=== PATIENT | female | born 1945 | race Caucasian/White ===

== ENCOUNTER 2017-10-26 11:03 | Emergency (ER) | payer OTHER ==
[~2017-10-26] VITALS: Ht 170.1 cm; Wt 63.5 kg
[~2017-10-26 11:03] MED LIST: ANTIVERT/2525 MG PO; FLAGYL500 MG PO; NO HOME MEDS; VIBRAMYCIN100 MG PO
[2017-10-26 12:07] LABS: BASO # 0.1 10*3/uL (0.0-0.1); BASO % 0.7 % (0.0-1.0); EOS # 0.2 10*3/uL (0.0-0.4); EOS % 1.7 % (1.0-4.0); HEMATOCRIT 42.3 % (37.0-47.0); HEMOGLOBIN 14.1 g/dl (12.0-16.0); LYMPH # 1.9 10*3/uL (1.3-4.4); LYMPH % 17.5 % (27.0-41.0); MEAN CELL VOLUME 85.6 fl (81.0-99.0); MEAN CORPUSCULAR HGB 28.5 pg (27.0-31.0); MEAN CORPUSCULAR HGB CONC 33.3 g/dl (33.0-37.0); MEAN PLATELET VOLUME 11.6 fl (9.6-12.3); MONO # 0.9 10*3/uL (0.1-1.0); MONO % 7.8 % (3.0-9.0); NEUT % 71.9 % (47.0-73.0); PLATELET COUNT AUTOMATED 274 10*3/uL (130-400); RED BLOOD COUNT 4.94 10*6/uL (4.10-5.10); RED CELL DISTRI WIDTH 13.1 % (0-14.5); WHITE BLOOD COUNT 11.1 10*3/uL (4.8-10.8)
[2017-10-26 12:16] LABS: ACT PARTIAL THROMBO TIME 24.5 SECONDS (20.8-31.5); INTERNATIONAL NORM RATIO 0.9 (2.0-3.5)
[2017-10-26 12:23] LABS: BUN 9 mg/dl (7-24); CHLORIDE 97 mmol/L (98-107); CREATININE 0.56 mg/dL (0.55-1.02); POTASSIUM 3.8 mmol/L (3.5-5.1); SODIUM 133 mmol/L (136-145)
== END 2017-10-26 13:41 | disposition home or self-care (01) ==
LOC: ED 11:03
PROVIDERS: Emergency Medicine
DX: S42.292A Other displaced fracture of upper end of left humerus, initial encounter for closed fracture (principal); S00.81XA Abrasion of other part of head, initial encounter; J44.9 Chronic obstructive pulmonary disease, unspecified; F17.200 Nicotine dependence, unspecified, uncomplicated; Z88.0 Allergy status to penicillin; W19.XXXA Unspecified fall, initial encounter; Y93.89 Activity, other specified; Y92.099 Unspecified place in other non-institutional residence as the place of occurrence of the external cause; Y99.9 Unspecified external cause status

== ENCOUNTER → 2017-10-31 | Outpatient (CLI) | payer OTHER | END | disposition home or self-care (01) | LOC: LAB 08:45 → ORTHO 08:45 | DX: E55.9 Vitamin D deficiency, unspecified (principal) ==

== ENCOUNTER 2017-11-10 19:20 | Emergency (ER) | payer OTHER ==
[~2017-11-10] VITALS: Ht 162.5 cm; Wt 55.3 kg
[2017-11-10 19:59] LABS: BASO # 0.1 10*3/uL (0.0-0.1); BASO % 0.8 % (0.0-1.0); EOS # 0.3 10*3/uL (0.0-0.4); EOS % 3.5 % (1.0-4.0); HEMATOCRIT 39.5 % (37.0-47.0); HEMOGLOBIN 12.8 g/dl (12.0-16.0); LYMPH # 1.9 10*3/uL (1.3-4.4); LYMPH % 24.6 % (27.0-41.0); MEAN CELL VOLUME 87.6 fl (81.0-99.0); MEAN CORPUSCULAR HGB 28.4 pg (27.0-31.0); MEAN CORPUSCULAR HGB CONC 32.4 g/dl (33.0-37.0); MEAN PLATELET VOLUME 11.2 fl (9.6-12.3); MONO # 0.9 10*3/uL (0.1-1.0); NEUT # 4.6 10*3/uL (2.3-7.9); NEUT % 59.7 % (47.0-73.0); PLATELET COUNT AUTOMATED 373 10*3/uL (130-400); RED BLOOD COUNT 4.51 10*6/uL (4.10-5.10); RED CELL DISTRI WIDTH 13.3 % (0-14.5); WHITE BLOOD COUNT 7.8 10*3/uL (4.8-10.8)
[2017-11-10 20:03] LABS: BILIRUBIN NEGATIVE (NEGATIVE); BLOOD NEGATIVE (NEGATIVE); CLARITY SL CLOUDY (CLEAR); COLOR YELLOW (YELLOW); GLUCOSE 3+ (NEGATIVE); KETONE NEGATIVE (NEGATIVE); LEUKO ESTERASE NEGATIVE (NEGATIVE); NITRITE NEGATIVE (NEGATIVE); SPECIFIC GRAVITY <= 1.005 (1.005-1.030); UROBILINOGEN 0.2 E.U./dl (0.2-1.0)
[2017-11-10 20:10] LABS: URINE AMPHETAMINES < 1000 (1000ng/ml); URINE BARBITURATES < 200 (200ng/ml); URINE BENZODIAZEPINES < 200 (200ng/ml); URINE CANNABINOIDS (THC) < 50 (50ng/ml); URINE COCAINE < 300 (300ng/ml); URINE METHADONE < 300 (300ng/ml); URINE OPIATES < 300 (300ng/ml)
[2017-11-10 20:14] LABS: BACTERIA 2+; URINE PHENCYCLIDINE < 25 (25ng/ml)
[2017-11-10 20:15] LABS: EPITHELIAL CELLS 21-30
[2017-11-10 20:16] LABS: MUCOUS TRACE
[2017-11-10 20:17] LABS: YEAST TRACE
[2017-11-10 20:18] LABS: ALBUMIN 2.7 gm/dl (3.1-4.5); ALKALINE PHOSPHATASE 83 U/L (45-117); BUN 11 mg/dl (7-24); CHLORIDE 97 mmol/L (98-107); CREATININE 0.88 mg/dL (0.55-1.02); POTASSIUM 3.7 mmol/L (3.5-5.1); SGOT/AST 13 IU/L (3-35); SGPT/ALT 13 U/L (12-78); SODIUM 132 mmol/L (136-145); TOTAL PROTEIN 7.3 gm/dL (6.4-8.2)
[2017-11-10 20:20] LABS: ACETAMINOPHEN (TYLENOL) < 2.0 ug/ml (10-30); ETHYL ALCOHOL < 3.0 mg/dl (<3); TROPONIN I < 0.015 ng/ml (<0.045)
[2017-11-10 20:24] LABS: THYROID STIM HORMONE (HS) 0.753 uIU/ml (0.358-4.75)
[2017-11-10] MEDS ORDERED: GLUCOPHAGE500 M1 PO (21:07)
[2017-11-10] MEDS ORDERED: NORCO 5-325 TA1 EACH PO (21:07)
== END 2017-11-10 21:15 | disposition home or self-care (01) ==
LOC: ED 19:20
PROVIDERS: Emergency Medicine Emergency Medical Services
DX: E11.9 Type 2 diabetes mellitus without complications (principal); R41.0 Disorientation, unspecified; Z88.0 Allergy status to penicillin

== ENCOUNTER → 2017-12-02 | Outpatient (CLI) | payer OTHER ==
[~2017-12-02] MED LIST changes: +GLUCOPHAGE500 M1 PO; +NORCO 5-325 TA1 EACH PO
== END | disposition home or self-care (01) ==
LOC: ORTHO 02:50
DX: Z47.89 Encounter for other orthopedic aftercare (principal); S42.302D Unspecified fracture of shaft of humerus, left arm, subsequent encounter for fracture with routine healing; X58.XXXD Exposure to other specified factors, subsequent encounter

== ENCOUNTER → 2018-01-02 | Outpatient (CLI) | payer OTHER | END | disposition home or self-care (01) | LOC: ORTHO 03:23 | DX: Z47.89 Encounter for other orthopedic aftercare (principal); S42.295D Other nondisplaced fracture of upper end of left humerus, subsequent encounter for fracture with routine healing; M85.812 Other specified disorders of bone density and structure, left shoulder; X58.XXXD Exposure to other specified factors, subsequent encounter ==

== ENCOUNTER 2018-09-12 15:04 | Emergency (ER) | payer OTHER ==
[~2018-09-12] VITALS: Ht 157.4 cm; Wt 72.6 kg
[2018-09-12] MEDS ORDERED: ULTRAM50 MG PO (18:43)
[2018-09-18] MEDS ORDERED: LIPITOR10 MG PO (07:32)
[2018-09-18] MEDS ORDERED: ZESTRIL10 MG PO (07:32)
[2018-09-18] MEDS ORDERED: FOSAMAX70 M1 PO (07:32)
[2018-09-18] MEDS ORDERED: VITAMIN D-32000 UNI1 PO (07:32)
[2018-09-18] MEDS ORDERED: METFORMIN ER500 MG PO (07:33)
[2018-09-20] MEDS ORDERED: LASIX40 MG PO (13:30)
[2018-09-20] MEDS ORDERED: MECLIZINE HCL25 M2 PO (13:30)
[2018-09-20] MEDS ORDERED: HYDROCODONE-AC1 EAC1 PO (13:30)
[2018-09-20] MEDS ORDERED: VITAMIN D50000 UNIT PO (13:34)
[2018-09-20] MEDS ORDERED: Humalog SQ (13:36)
[2018-09-20] MEDS ORDERED: COLACE100 MG PO (13:57)
== END 2018-09-12 19:36 | disposition home or self-care (01) ==
LOC: ED 15:04
DX: S42.461A Displaced fracture of medial condyle of right humerus, initial encounter for closed fracture (principal); G62.9 Polyneuropathy, unspecified; Z88.0 Allergy status to penicillin; W18.39XA Other fall on same level, initial encounter; Y93.89 Activity, other specified; Y92.89 Other specified places as the place of occurrence of the external cause; Y99.8 Other external cause status

== ENCOUNTER → 2018-10-06 | Outpatient (CLI) | payer OTHER ==
[~2018-10-06] MED LIST changes: +COLACE100 MG PO; +FOSAMAX70 M1 PO; +HYDROCODONE-AC1 EAC1 PO; +Humalog SQ; +LASIX40 MG PO; +LIPITOR10 MG PO; +MECLIZINE HCL25 M2 PO; +METFORMIN ER500 MG PO; +ULTRAM50 MG PO; +VITAMIN D-32000 UNI1 PO; +VITAMIN D50000 UNIT PO; +ZESTRIL10 MG PO
== END | disposition home or self-care (01) ==
LOC: ORTHO 02:33
DX: S42.444D Nondisplaced fracture (avulsion) of medial epicondyle of right humerus, subsequent encounter for fracture with routine healing (principal); X58.XXXD Exposure to other specified factors, subsequent encounter

== ENCOUNTER → 2018-10-20 | Outpatient (CLI) | payer OTHER | END | disposition home or self-care (01) | LOC: ORTHO 03:19 | DX: S42.401D Unspecified fracture of lower end of right humerus, subsequent encounter for fracture with routine healing (principal); X58.XXXD Exposure to other specified factors, subsequent encounter ==

== ENCOUNTER 2019-06-21 19:22 | Inpatient (IN) | payer OTHER ==
[~2019-06-21] VITALS: Ht 157.4 cm; Wt 81.3 kg
[2019-06-21 19:26] VITALS: BP 155/62
[2019-06-21 20:21] LABS: BASO % 0.2 % (0.0-1.0); EOS # 0.1 10*3/uL (0.0-0.4); EOS % 0.6 % (1.0-4.0); HEMATOCRIT 35.1 % (37.0-47.0); HEMOGLOBIN 11.2 g/dl (12.0-16.0); LYMPH # 0.8 10*3/uL (1.3-4.4); LYMPH % 5.9 % (27.0-41.0); MEAN CELL VOLUME 88.6 fl (81.0-99.0); MEAN CORPUSCULAR HGB 28.3 pg (27.0-31.0); MEAN CORPUSCULAR HGB CONC 31.9 g/dl (33.0-37.0); MEAN PLATELET VOLUME 12.1 fl (9.6-12.3); MONO % 7.4 % (3.0-9.0); NEUT # 11.9 10*3/uL (2.3-7.9); NEUT % 85.5 % (47.0-73.0); PLATELET COUNT AUTOMATED 268 10*3/uL (130-400); RED BLOOD COUNT 3.96 10*6/uL (4.10-5.10); RED CELL DISTRI WIDTH 14.4 % (0-14.5)
[2019-06-21 20:31] LABS: INTERNATIONAL NORM RATIO 1.1 (2.0-3.5)
[2019-06-21 20:42] LABS: BILIRUBIN 1+ (NEGATIVE); BLOOD 2+ (NEGATIVE); CLARITY CLEAR (CLEAR); COLOR YELLOW (YELLOW); GLUCOSE TRACE (NEGATIVE); KETONE TRACE (NEGATIVE); LEUKO ESTERASE NEGATIVE (NEGATIVE); NITRITE NEGATIVE (NEGATIVE); SPECIFIC GRAVITY 1.025 (1.005-1.030)
[2019-06-21 20:44] LABS: ALBUMIN 2.4 gm/dl (3.1-4.5); CREATININE 1.33 mg/dL (0.55-1.02); POTASSIUM 3.7 mmol/L (3.5-5.1); TOTAL PROTEIN 7.5 gm/dL (6.4-8.2)
[2019-06-21 20:53] LABS: TROPONIN I 0.141 ng/ml (<0.045)
[2019-06-21 20:57] LABS: EPITHELIAL CELLS 0-2
[2019-06-21 22:23] VITALS: BP 161/59
[2019-06-22 00:30] VITALS: BP 157/61
[2019-06-22] MEDS ORDERED: LASIX20 MG PO (00:44)
[2019-06-22 03:51] LABS: BASO % 0.2 % (0.0-1.0); EOS # 0.1 10*3/uL (0.0-0.4); EOS % 1.1 % (1.0-4.0); HEMATOCRIT 33.2 % (37.0-47.0); HEMOGLOBIN 10.7 g/dl (12.0-16.0); LYMPH # 1.1 10*3/uL (1.3-4.4); LYMPH % 8.6 % (27.0-41.0); MEAN CELL VOLUME 87.4 fl (81.0-99.0); MEAN CORPUSCULAR HGB 28.2 pg (27.0-31.0); MEAN CORPUSCULAR HGB CONC 32.2 g/dl (33.0-37.0); MEAN PLATELET VOLUME 11.5 fl (9.6-12.3); MONO % 8.5 % (3.0-9.0); NEUT # 9.9 10*3/uL (2.3-7.9); NEUT % 81.4 % (47.0-73.0); PLATELET COUNT AUTOMATED 269 10*3/uL (130-400); RED CELL DISTRI WIDTH 14.4 % (0-14.5); WHITE BLOOD COUNT 12.2 10*3/uL (4.8-10.8)
[2019-06-22 04:05] LABS: ALBUMIN 2.3 gm/dl (3.1-4.5); CREATININE 1.13 mg/dL (0.55-1.02); PHOSPHOROUS 2.7 mg/dL (2.5-4.9); POTASSIUM 3.6 mmol/L (3.5-5.1)
[2019-06-22 07:06] LABS: VITAMIN D, 25-HYDROXY 9.2 ng/mL (30-100)
[2019-06-22 08:00] VITALS: BP 148/52
[2019-06-22 12:00] VITALS: BP 135/107
[2019-06-22 16:00] VITALS: BP 171/64
[2019-06-22 20:00] VITALS: BP 139/73
[2019-06-23] VITALS: BP 155/63
[2019-06-23 03:59] VITALS: BP 156/88
[2019-06-23 10:53] LABS: BASO % 0.1 % (0.0-1.0); EOS % 0.1 % (1.0-4.0); HEMATOCRIT 32.7 % (37.0-47.0); HEMOGLOBIN 10.3 g/dl (12.0-16.0); LYMPH # 0.5 10*3/uL (1.3-4.4); LYMPH % 4.2 % (27.0-41.0); MEAN CELL VOLUME 90.1 fl (81.0-99.0); MEAN CORPUSCULAR HGB 28.4 pg (27.0-31.0); MEAN CORPUSCULAR HGB CONC 31.5 g/dl (33.0-37.0); MEAN PLATELET VOLUME 11.4 fl (9.6-12.3); MONO # 0.9 10*3/uL (0.1-1.0); MONO % 6.9 % (3.0-9.0); NEUT # 11.3 10*3/uL (2.3-7.9); NEUT % 88.2 % (47.0-73.0); PLATELET COUNT AUTOMATED 294 10*3/uL (130-400); RED BLOOD COUNT 3.63 10*6/uL (4.10-5.10); RED CELL DISTRI WIDTH 14.7 % (0-14.5); WHITE BLOOD COUNT 12.8 10*3/uL (4.8-10.8)
[2019-06-23 11:05] LABS: ALBUMIN 2.4 gm/dl (3.1-4.5); CREATININE 1.4 mg/dL (0.55-1.02); TOTAL PROTEIN 7.3 gm/dL (6.4-8.2)
[2019-06-23 12:00] VITALS: BP 136/68
[2019-06-23 16:00] VITALS: BP 152/69
[2019-06-23 20:00] VITALS: BP 143/83
[2019-06-24] VITALS: BP 149/60
[2019-06-24 07:28] LABS: BUN 26 mg/dl (7-24); CHLORIDE 105 mmol/L (98-107); CREATININE 1.03 mg/dL (0.55-1.02); POTASSIUM 3.5 mmol/L (3.5-5.1); SODIUM 136 mmol/L (136-145)
[2019-06-24 08:00] VITALS: BP 136/64
[2019-06-24 08:30] LABS: BASO % 0.1 % (0.0-1.0); EOS % 0.1 % (1.0-4.0); HEMOGLOBIN 9.8 g/dl (12.0-16.0); LYMPH % 7.4 % (27.0-41.0); MEAN CELL VOLUME 87.3 fl (81.0-99.0); MEAN CORPUSCULAR HGB 27.6 pg (27.0-31.0); MEAN CORPUSCULAR HGB CONC 31.6 g/dl (33.0-37.0); MEAN PLATELET VOLUME 11.9 fl (9.6-12.3); NEUT # 11.7 10*3/uL (2.3-7.9); NUCLEATED RED BLOOD CELL 0.2 % (0.0-0.0); PLATELET COUNT AUTOMATED 311 10*3/uL (130-400); RED BLOOD COUNT 3.55 10*6/uL (4.10-5.10); RED CELL DISTRI WIDTH 14.6 % (0-14.5); WHITE BLOOD COUNT 13.8 10*3/uL (4.8-10.8)
[2019-06-24 12:00] VITALS: BP 144/71; BP 159/73
[2019-06-24 16:00] VITALS: BP 164/82
[2019-06-24 20:00] VITALS: BP 168/78
[2019-06-25] VITALS: BP 152/57
[2019-06-25 07:05] LABS: BASO % 0.1 % (0.0-1.0); EOS % 0.3 % (1.0-4.0); HEMATOCRIT 32.5 % (37.0-47.0); HEMOGLOBIN 10.2 g/dl (12.0-16.0); LYMPH # 1.7 10*3/uL (1.3-4.4); LYMPH % 13.6 % (27.0-41.0); MEAN CELL VOLUME 87.8 fl (81.0-99.0); MEAN CORPUSCULAR HGB 27.6 pg (27.0-31.0); MEAN CORPUSCULAR HGB CONC 31.4 g/dl (33.0-37.0); MEAN PLATELET VOLUME 11.7 fl (9.6-12.3); MONO % 7.8 % (3.0-9.0); NEUT # 9.6 10*3/uL (2.3-7.9); NEUT % 77.5 % (47.0-73.0); PLATELET COUNT AUTOMATED 338 10*3/uL (130-400); RED CELL DISTRI WIDTH 14.9 % (0-14.5); WHITE BLOOD COUNT 12.4 10*3/uL (4.8-10.8)
[2019-06-25 07:14] LABS: BUN 23 mg/dl (7-24); CHLORIDE 104 mmol/L (98-107); CREATININE 1.06 mg/dL (0.55-1.02); POTASSIUM 3.8 mmol/L (3.5-5.1); SODIUM 135 mmol/L (136-145)
[2019-06-25 08:59] VITALS: BP 160/82
[2019-06-25] MEDS ORDERED: ZESTRIL10 MG PO (10:01)
[2019-06-25] MEDS ORDERED: FLAGYL500 MG PO (10:01)
[2019-06-25] MEDS ORDERED: PREDNISONE10 MG PO (10:01)
[2019-06-25] MEDS ORDERED: VITAMIN D32000 UNI1 PO (10:01)
[2019-06-25] MEDS ORDERED: CIPRO500 MG PO (10:01)
[2019-06-25 12:00] VITALS: BP 165/74
== END 2019-06-25 14:31 | disposition home health service (06) | DRG 871 ==
LOC: ED 19:22 → 4E 06-22 00:01 → EDHOLD 06-22 00:01 → 4E 06-22 00:02
PROVIDERS: Family Medicine; Physician Assistant; Student in an Organized Health Care Education/Training Program; ADMIT Internal Medicine
DX: A41.9 Sepsis, unspecified organism (principal); N17.0 Acute kidney failure with tubular necrosis; E43 Unspecified severe protein-calorie malnutrition; J96.01 Acute respiratory failure with hypoxia; J18.9 Pneumonia, unspecified organism; K57.20 Diverticulitis of large intestine with perforation and abscess without bleeding; E87.1 Hypo-osmolality and hyponatremia; J44.1 Chronic obstructive pulmonary disease with (acute) exacerbation; J44.0 Chronic obstructive pulmonary disease with (acute) lower respiratory infection; I24.8 Other forms of acute ischemic heart disease; J20.9 Acute bronchitis, unspecified; B35.1 Tinea unguium; K74.60 Unspecified cirrhosis of liver; R65.20 Severe sepsis without septic shock; D72.810 Lymphocytopenia; E11.65 Type 2 diabetes mellitus with hyperglycemia; R80.9 Proteinuria, unspecified; D64.9 Anemia, unspecified; I10 Essential (primary) hypertension; E78.5 Hyperlipidemia, unspecified; E11.42 Type 2 diabetes mellitus with diabetic polyneuropathy; F17.210 Nicotine dependence, cigarettes, uncomplicated; Z68.32 Body mass index [BMI] 32.0-32.9, adult; Z71.6 Tobacco abuse counseling; Z88.0 Allergy status to penicillin; Z82.3 Family history of stroke; Z83.3 Family history of diabetes mellitus; Z82.49 Family history of ischemic heart disease and other diseases of the circulatory system; Z79.899 Other long term (current) drug therapy

== ENCOUNTER 2019-08-06 13:23 | Inpatient (IN) | payer OTHER ==
[~2019-08-06] VITALS: Ht 160 cm; Wt 91.8 kg
[~2019-08-06 13:23] MED LIST changes: +CIPRO500 MG PO; +LASIX20 MG PO; +PREDNISONE10 MG PO; +VITAMIN D32000 UNI1 PO
[2019-08-06 13:34] VITALS: BP 179/84
[2019-08-06 14:02] LABS: BASO # 0.1 10*3/uL (0.0-0.1); BASO % 1.4 % (0.0-1.0); EOS # 0.1 10*3/uL (0.0-0.4); HEMATOCRIT 41.8 % (37.0-47.0); HEMOGLOBIN 12.6 g/dl (12.0-16.0); LYMPH # 1.9 10*3/uL (1.3-4.4); LYMPH % 26.9 % (27.0-41.0); MEAN CELL VOLUME 90.9 fl (81.0-99.0); MEAN CORPUSCULAR HGB 27.4 pg (27.0-31.0); MEAN CORPUSCULAR HGB CONC 30.1 g/dl (33.0-37.0); MEAN PLATELET VOLUME 11.4 fl (9.6-12.3); MONO # 0.8 10*3/uL (0.1-1.0); MONO % 10.9 % (3.0-9.0); NEUT # 4.1 10*3/uL (2.3-7.9); NEUT % 58.8 % (47.0-73.0); PLATELET COUNT AUTOMATED 294 10*3/uL (130-400); RED CELL DISTRI WIDTH 17.3 % (0-14.5)
[2019-08-06 14:16] LABS: ACT PARTIAL THROMBO TIME 25.9 SECONDS (20.0-32.1)
[2019-08-06 14:17] LABS: ALKALINE PHOSPHATASE 93 U/L (45-117); BUN 9 mg/dl (7-24); CHLORIDE 102 mmol/L (98-107); CREATININE 1.04 mg/dL (0.55-1.02); LIPASE 95 U/L (73-393); POTASSIUM 3.4 mmol/L (3.5-5.1); SGOT/AST 15 IU/L (3-35); SGPT/ALT 13 U/L (12-78); SODIUM 137 mmol/L (136-145); TOTAL PROTEIN 7.3 gm/dL (6.4-8.2)
[2019-08-06 14:19] LABS: TROPONIN I 0.187 ng/ml (<0.045)
--- NOTE | 2019-08-06 14:50 | NUR ---
A 74, admitted to , under the services of Dr. ESTUARDO PARISH,ANAND Solorio with a diagnosis of CHF. Chief complaint is SHORTNESS OF BREATH, BLE EDEMA. Patient arrived via stretcher from ER. Monitor applied. Initial assessment completed. Vital signs taken and recorded. DR. ESTUARDO PARISH,ANAND Solorio notified of admission to the unit. Orders received. See assessment for past medical history, medications and allergies. Patient and/or family oriented to unit. [address] visitation policy reviewed. Clothing/patient valuable form completed. KATJA RIVAS
[2019-08-06 16:00] VITALS: BP 154/84
[2019-08-06 16:25] VITALS: BP 160/73
--- NOTE | 2019-08-06 17:23 | NUR ---
DR LOREDO CONSULT CALLED TO ANSWERING SERVICE
--- NOTE | 2019-08-06 19:00 | NUR ---
ASSUMED CARE FOR THIS PT AT THIS TIME. NO C/O VOICED AT PRESENT TIME. CALL LIGHT IN REACH.
[2019-08-06 20:00] VITALS: BP 156/69
--- NOTE | 2019-08-06 22:00 | NUR ---
PT C/O PAIN 01/27 IN LOWER BACK. ACETMMINOPHEN GIVEN.
--- NOTE | 2019-08-06 22:53 | NUR ---
PAIN 0/10. PT RESTING QUIETLY
[2019-08-07] VITALS: BP 119/45
--- NOTE | 2019-08-07 01:29 | NUR ---
24 HR chart check completed.
[2019-08-07 06:29] LABS: BASO # 0.1 10*3/uL (0.0-0.1); EOS % 0.6 % (1.0-4.0); HEMATOCRIT 39.5 % (37.0-47.0); HEMOGLOBIN 11.6 g/dl (12.0-16.0); LYMPH # 1.6 10*3/uL (1.3-4.4); LYMPH % 31.9 % (27.0-41.0); MEAN CELL VOLUME 90.8 fl (81.0-99.0); MEAN CORPUSCULAR HGB 26.7 pg (27.0-31.0); MEAN CORPUSCULAR HGB CONC 29.4 g/dl (33.0-37.0); MEAN PLATELET VOLUME 11.2 fl (9.6-12.3); MONO # 0.8 10*3/uL (0.1-1.0); MONO % 14.9 % (3.0-9.0); NEUT # 2.6 10*3/uL (2.3-7.9); NEUT % 51.4 % (47.0-73.0); PLATELET COUNT AUTOMATED 264 10*3/uL (130-400); RED BLOOD COUNT 4.35 10*6/uL (4.10-5.10); RED CELL DISTRI WIDTH 17.2 % (0-14.5); WHITE BLOOD COUNT 5.1 10*3/uL (4.8-10.8)
[2019-08-07 06:46] LABS: BUN 7 mg/dl (7-24); CHLORIDE 100 mmol/L (98-107); CREATININE 1.02 mg/dL (0.55-1.02); POTASSIUM 3.5 mmol/L (3.5-5.1); SODIUM 139 mmol/L (136-145)
[2019-08-07 08:00] VITALS: BP 120/50
--- NOTE | 2019-08-07 08:04 | NUR ---
PHYSICAL THERAPY Screen and eval received will follow thank you Saba Alexander PT
--- NOTE | 2019-08-07 10:30 | NUR ---
Automobile Body Worker in to see patient. She is currently getting bathes in the bathroom with the patient attendant. Will follow up at a later time.
--- NOTE | 2019-08-07 11:38 | NUR ---
Nutritional Support Services Note: Discussed w/ pt NCS diet per her request. Diet sheet given. All questions were answered. Pt has a good understanding of diet and complies at home. Pt lives with supportive person at home who helps prepare meals. Encouraged her to call with any questions or concerns. Will follow if needed. Compliance to diet will be good. LESLIE Caraballo nurse intern
[2019-08-07 12:00] VITALS: BP 127/54
--- NOTE | 2019-08-07 15:15 | NUR ---
Assistant Tennis Professional in to talk to patient. Patient states lives at home with her COMPUTER DRAFTER, Minh Thrasher and Minh's daughter. There are 24 steps in the home. There are 2 wheelchair ramps, one in the front and one in the back. Physician: Dr. Get De La Fuente Pharmacy: [facility] Home health services: [facility] therapy and would like to have a nurse again Patient's level of ADLs: MINIMAL ASSIST Patient has working utilities: yes DME: cane, walker Follow-up physician's appointment after d/c: she prefers to make her own follow up appt after discharge Does patient want to access PORTAL?: no Discharge plan discussed with patient. She lives at home with her COMPUTER DRAFTER caregiver. She needs minimal assistance with her ADLs and ambulates with either a walker or a cane. Discussed short term SNF and she refuses. Discussed home health care services and she currently has [facility] therapy but would like to have the nurse come back also. When medically stable she will be discharged to home with [facility] services, She states either her goddaughter will provide transportation or she will have to take a cab. BRITTANEY BEY
[2019-08-07 16:00] VITALS: BP 148/74
--- NOTE | 2019-08-07 18:48 | NUR ---
LAB CALLED CRITICAL TROPONIN. DR CARDONA CALLED AND NOTIFIED OF TROPONIN LEVELS AND ECHO FROM TODAY. NO NEW ORDERS
--- NOTE | 2019-08-07 19:00 | NUR ---
ASSUMED CARE FOR THIS PT AT THIS TIME. PT RESTING QUIETLY IN BED. NO S/S OF DISTRESS NOTED. CALL LIGHT IN REACH.
[2019-08-07 20:00] VITALS: BP 106/53
--- NOTE | 2019-08-07 20:21 | NUR ---
DR. TAYLOR NOTIFIED OF PT'S C/O NAUSEA. T.O. RCVD FOR ZOFRAN 8MG IVP Q6 HOURS PRN N/V.
--- NOTE | 2019-08-07 23:00 | NUR ---
PT DENIES ANY FURTHER C/O NAUSEA. PRN ZOFRAN EFFECTIVE.
[2019-08-08] VITALS: BP 145/63
--- NOTE | 2019-08-08 01:03 | NUR ---
PT STATES SHE CAN'T CATCH HER BREATH. NO S/S OF RESP DISTRESS NOTED. SAT 98% RA. PT ENCOURAGED TO SIT UP IN BED VS LYING FLAT WHICH CAUSES HER SOB AT HOME. O2 APPLIED VIA NC AT 2LPM FOR COMFORT. CALL LIGHT IN REACH.
--- NOTE | 2019-08-08 02:00 | NUR ---
PT AWAKE IN BED ON HER CELL PHONE. NO S/S OF RESP DISTRESS NOTED OR REPORTED. CALL LIGHT IN REACH.
[2019-08-08 07:27] LABS: CREATININE 1.22 mg/dL (0.55-1.02); POTASSIUM 3.6 mmol/L (3.5-5.1)
--- NOTE | 2019-08-08 09:00 | NUR ---
Body Press Operator in to see patient. No new needs or request at this time. When medically stable she will be discharged to home with [facility] services.
[2019-08-08 12:00] VITALS: BP 152/59
[2019-08-08 16:00] VITALS: BP 155/77
[2019-08-08 20:00] VITALS: BP 110/47
[2019-08-09] VITALS: BP 138/60
[2019-08-09 06:11] LABS: ALBUMIN 2.8 gm/dl (3.1-4.5); CREATININE 1.27 mg/dL (0.55-1.02); POTASSIUM 3.5 mmol/L (3.5-5.1); TOTAL PROTEIN 6.6 gm/dL (6.4-8.2)
--- NOTE | 2019-08-09 08:00 | NUR ---
IN TO ROOM. PATIENT NEEDED ASSISTANCE TO AMBULATE TO RESTROOM. AMBULATES WITH 1 ASSIST. UNSTEADY AT TIMES. PT AWAKE, ALERT AND ORIENTED. VOICED CONCERNS FOR STRESS TEST. EDUCATION PROVIDED. SKIN SHOWS EVIDENCE OF SCRATCHING. PT STATES SHE IS VERY ITCHY. LOTION PROVIDED. BED IN LOWEST LOCKED POSITION AND CALL LIGHT WITHIN REACH. WILL CONTINUE TO MONITOR.
--- NOTE | 2019-08-09 10:10 | NUR ---
INFORMED CONSENT OBTAINED FOR A LEXISCAN STESS TEST WITH DR. MARTE. RESTING EKG NSR WITH A HT RT OF 83, AMD A BP OF 152/76. BREATH SOUNDS DIMINISHED WITH A SPO2 OF 97% VIA RA. COMPLETED ONE MINUTE OF A LEXISCAN PROTOCOL RECEIVING LEXISCAN 0.4 MG OVER 10 SECONDS. NO COMPLAINTS VOICED. HAD A PEAK HT RT OF 84, WITH A BP OF 158/82. LAST RECOVERY HT RT OF 85, WITH A BP OF 156/80. AWAITING NUCLEAR IMAGING IN STABLE CONDITION.
--- NOTE | 2019-08-09 10:30 | NUR ---
Configuration Management Manager in to see patient. No new needs or request at this time. When medically stable she will be discharged to home with [facility] services.
--- NOTE | 2019-08-09 10:40 | NUR ---
PHYSICAL THERAPY Attempted to see pt this AM for assessemnt pt out of room for stress test per nsg request will follow in the PM after lunch per nurse Lyndsey. Saba Alexander PT
--- NOTE | 2019-08-09 11:45 | NUR ---
Faxed new home health order to [facility]
[2019-08-09 12:00] VITALS: BP 126/62
--- NOTE | 2019-08-09 12:00 | NUR ---
PT BACK TO FLOOR FROM STRESS TEST. PT STATED SHE WAS HUNGRY. DR MARTE NOTIFIED AND ORDERS OBTAINED TO CONTINUE DIET. PT COMPLAINS OF BACK PAIN AND PRN TYLENOL ADMINISTERED. WILL CONTINUE TO MONITOR.
--- NOTE | 2019-08-09 14:44 | NUR ---
DR. HYDE CALLED ABOUT PT. STATES THAT SHE IS OK TO GO FROM CARDIOLOGY'S STAND POINT. DR MARTE NOTIFIED.
--- NOTE | 2019-08-09 14:55 | NUR ---
PHYSICAL THERAPY Huial completed pt moderate level of complexity [id number] recomend home w PT to work on transfers, abm, balance/strengthing. Saba Alexander PT
[2019-08-09 16:00] VITALS: BP 123/50
[2019-08-09 20:00] VITALS: BP 146/61
[2019-08-10] VITALS: BP 153/59
[2019-08-10 06:37] LABS: BASO # 0.1 10*3/uL (0.0-0.1); BASO % 0.9 % (0.0-1.0); EOS # 0.1 10*3/uL (0.0-0.4); HEMATOCRIT 37.6 % (37.0-47.0); HEMOGLOBIN 10.8 g/dl (12.0-16.0); MEAN CELL VOLUME 92.6 fl (81.0-99.0); MEAN CORPUSCULAR HGB 26.6 pg (27.0-31.0); MEAN CORPUSCULAR HGB CONC 28.7 g/dl (33.0-37.0); MEAN PLATELET VOLUME 11.3 fl (9.6-12.3); MONO # 0.7 10*3/uL (0.1-1.0); MONO % 10.9 % (3.0-9.0); NEUT # 4.5 10*3/uL (2.3-7.9); PLATELET COUNT AUTOMATED 223 10*3/uL (130-400); RED BLOOD COUNT 4.06 10*6/uL (4.10-5.10); RED CELL DISTRI WIDTH 17.1 % (0-14.5); WHITE BLOOD COUNT 6.4 10*3/uL (4.8-10.8)
[2019-08-10 08:00] VITALS: BP 142/72
--- NOTE | 2019-08-10 08:30 | NUR ---
PHYSICAL THERAPY Attempt to see pt this A.M. and pt stated " lets hold off till later and I will try if the pain is better." Kaitlin Walters NAPPING MACHINE OPERATOR
--- NOTE | 2019-08-10 11:00 | NUR ---
PHYSICAL THERAPY Attempted to see pt for 2nd time and pt stated " I am going home and don't want to worry about any therapy today." Kaitlin Walters FABRICATION AND ASSEMBLY SUPERVISOR
[2019-08-10] MEDS ORDERED: ISORDIL10 M1 PO (11:08)
[2019-08-10] MEDS ORDERED: ATORVASTATIN CA40 M1 PO (11:08)
[2019-08-10] MEDS ORDERED: APRESOLINE10 MG PO (11:08)
[2019-08-10] MEDS ORDERED: ASPIRIN CHEWABL81 M1 PO (11:08)
[2019-08-10] MEDS ORDERED: METOPROLOL SUCC25 M2 PO (11:08)
[2019-08-10] MEDS ORDERED: BUMETANIDE0.5 MG PO (11:09)
--- NOTE | 2019-08-10 13:40 | NUR ---
Discharge instructions reviewed with patient/family. Patient receptive and verbalizes understanding. Follow-up care arranged. Written instructions given to patient/family. MIRIAM FREITAS
--- NOTE | 2019-08-10 16:14 | NUR ---
Faxed discharge summary and disposition to [facility]
== END 2019-08-10 13:40 | disposition home health service (06) | DRG 292 ==
LOC: ED 13:23 → 4E 15:36 → EDHOLD 15:36 → 4E 16:22
PROVIDERS: Emergency Medicine; Student in an Organized Health Care Education/Training Program; ADMIT Internal Medicine
PROC: 3E073KZ Introduction of Other Diagnostic Substance into Coronary Artery, Percutaneous Approach (ICD-10-PCS; principal; 2019-08-09)
PROC: 4A02XM4 Measurement of Cardiac Total Activity, External Approach (ICD-10-PCS; principal; 2019-08-09)
DX: I11.0 Hypertensive heart disease with heart failure (principal); E44.0 Moderate protein-calorie malnutrition; I27.20 Pulmonary hypertension, unspecified; R62.7 Adult failure to thrive; I50.43 Acute on chronic combined systolic (congestive) and diastolic (congestive) heart failure; I42.9 Cardiomyopathy, unspecified; E11.42 Type 2 diabetes mellitus with diabetic polyneuropathy; K74.60 Unspecified cirrhosis of liver; E87.6 Hypokalemia; I35.0 Nonrheumatic aortic (valve) stenosis; E78.2 Mixed hyperlipidemia; Z53.29 Procedure and treatment not carried out because of patient's decision for other reasons; T50.2X5A Adverse effect of carbonic-anhydrase inhibitors, benzothiadiazides and other diuretics, initial encounter; D64.9 Anemia, unspecified; K57.90 Diverticulosis of intestine, part unspecified, without perforation or abscess without bleeding; F17.210 Nicotine dependence, cigarettes, uncomplicated; J44.9 Chronic obstructive pulmonary disease, unspecified; Z88.0 Allergy status to penicillin; Z82.3 Family history of stroke; Z82.49 Family history of ischemic heart disease and other diseases of the circulatory system; Z83.3 Family history of diabetes mellitus; Z68.37 Body mass index [BMI] 37.0-37.9, adult; Y92.89 Other specified places as the place of occurrence of the external cause

== ENCOUNTER 2019-08-13 02:24 | Inpatient (IN) | payer OTHER ==
--- NOTE | 2019-08-10 07:44 | NUR ---
PHYSICAL THERAPY CO-SIGN I approve of the Physical Therapy notes written above. Saba Alexander PT
[~2019-08-13] VITALS: Ht 160 cm; Wt 98.9 kg
[~2019-08-13 02:24] MED LIST changes: +APRESOLINE10 MG PO; +ASPIRIN CHEWABL81 M1 PO; +ATORVASTATIN CA40 M1 PO; +BUMETANIDE0.5 MG PO; +ISORDIL10 M1 PO; +METOPROLOL SUCC25 M2 PO
[2019-08-13 02:28] VITALS: BP 165/61
[2019-08-13 03:02] LABS: BASO # 0.1 10*3/uL (0.0-0.1); BASO % 1.3 % (0.0-1.0); EOS # 0.2 10*3/uL (0.0-0.4); EOS % 2.3 % (1.0-4.0); HEMATOCRIT 37.8 % (37.0-47.0); HEMOGLOBIN 11.2 g/dl (12.0-16.0); LYMPH # 1.8 10*3/uL (1.3-4.4); LYMPH % 26.4 % (27.0-41.0); MEAN CELL VOLUME 91.5 fl (81.0-99.0); MEAN CORPUSCULAR HGB 27.1 pg (27.0-31.0); MEAN CORPUSCULAR HGB CONC 29.6 g/dl (33.0-37.0); MEAN PLATELET VOLUME 11.2 fl (9.6-12.3); MONO # 0.9 10*3/uL (0.1-1.0); MONO % 12.7 % (3.0-9.0); NEUT % 57.2 % (47.0-73.0); PLATELET COUNT AUTOMATED 213 10*3/uL (130-400); RED BLOOD COUNT 4.13 10*6/uL (4.10-5.10); RED CELL DISTRI WIDTH 17.1 % (0-14.5); WHITE BLOOD COUNT 6.9 10*3/uL (4.8-10.8)
[2019-08-13 03:13] LABS: ACT PARTIAL THROMBO TIME 27.6 SECONDS (20.0-32.1)
[2019-08-13 03:19] LABS: CREATININE 1.12 mg/dL (0.55-1.02); POTASSIUM 3.7 mmol/L (3.5-5.1); TOTAL PROTEIN 7.1 gm/dL (6.4-8.2)
[2019-08-13 03:23] LABS: TROPONIN I 0.148 ng/ml (<0.045)
[2019-08-13 06:04] VITALS: BP 164/60
--- NOTE | 2019-08-13 06:25 | NUR ---
A 74, admitted to , under the services of Dr. ESTUARDO PARISH,ANAND Solorio with a diagnosis of COPD. Chief complaint is LEG SWELLING. Patient arrived via STRETCHER from ER. Monitor applied. Initial assessment completed. Vital signs taken and recorded. DR. ESTUARDO PARISH,ANAND Solorio notified of admission to the unit. Orders received. See assessment for past medical history, medications and allergies. Patient and/or family oriented to unit. [facility]. Clothing/patient valuable form completed. ANAYA QUINTANA
[2019-08-13] MEDS ORDERED: HYDRALAZINE10 MG PO (06:29)
[2019-08-13] MEDS ORDERED: ISOSORBIDE DINI10 M1 PO (06:31)
--- NOTE | 2019-08-13 06:38 | NUR ---
NOTIFIED OF PTS CONDITION AND WENT OVER PTS MEDICATIONS WITH HIM. NEW ORDERS RECEIVED.
--- NOTE | 2019-08-13 06:40 | NUR ---
ALSO NOTIFIED OF BP OF 164/60.
--- NOTE | 2019-08-13 07:19 | NUR ---
NOTIFIED OF CRITICAL TROPONINS AND PRO-BNP. NEW ORDERS RECEIVED.
--- NOTE | 2019-08-13 07:25 | NUR ---
ANSWERING SERVICE NOTIFIED OF NEW CONSULT.
--- NOTE | 2019-08-13 07:34 | NUR ---
AWARE OF NEW CONSULT. DISCUSSED PTS CONDITION WITH HIM AND REVIEWED LABS WITH HIM. HE STATES "WE WILL BE AROUND TO SEE HER IN A LITTLE BIT."
[2019-08-13 08:00] VITALS: BP 160/50
--- NOTE | 2019-08-13 08:16 | NUR ---
PHYSICAL THERAPY Screen received pt has already been evaluated and is on caseload thank you Saba Alexander PT
--- NOTE | 2019-08-13 09:00 | NUR ---
Manager Plan in to talk to patient. states lives at home with her LIME KILN TENDER, Minh Thrasher and Minh's daughter. There are 24 steps in the home. There are 2 wheelchair ramps, one in the front and one in the back. Physician: Dr. Get De La Fuente Pharmacy: [facility] Home health services: currently has [facility] and would like to resume those services upon discharge Patient's level of ADLs: MINIMAL ASSIST Patient has working utilities: yes DME: cane, walker Follow-up physician's appointment after d/c: she prefers to make her own follow up appt after discharge Does patient want to access PORTAL?: no Discharge plan discussed with patient. She lives at home with her LIME KILN TENDER caregiver. She needs minimal assistance with her ADLs and ambulates with either a walker or a cane. Discussed short term SNF and she refuses. Discussed home health care services and she currently has [facility] and would like to resume their services upon discharge. When medically stable she will be discharged to home with [facility]. She states either her goddaughter will provide transportation or she will have to take a cab. BRITTANEY BEY
--- NOTE | 2019-08-13 10:43 | NUR ---
PATIENT REFUSES SKIN ASSESSMENT, BY KRISTEN GOMEZ MYSELF. CALAZIME IS ORDERRED BUT PATIENT REFUSES
[2019-08-13 12:00] VITALS: BP 150/64
--- NOTE | 2019-08-13 13:36 | NUR ---
Nursing screen and OT orders received. Will follow up with patient. Thank you. Destiny Rivera, OTR/L
[2019-08-13 15:14] LABS: ABG BASE EXCESS 4.1 mmol/L (-2.0-2.0); ARTERIAL BLOOD GAS PH 7.466 (7.35-7.45)
[2019-08-13 16:00] VITALS: BP 148/90
[2019-08-13 20:00] VITALS: BP 146/68
--- NOTE | 2019-08-13 20:40 | NUR ---
MADE DR. SÁNCHEZ AWARE OF ABGS. NO NEW ORDERS RECEIVED. WILL CONTINUE TO MONITOR.
--- NOTE | 2019-08-13 21:43 | NUR ---
PATIENT REQUESTING TYLENOL FOR BLE PAIN. MEDICATED WITH TYLENOL AT THIS TIME. WILL CONTINUE TO MONITOR.
--- NOTE | 2019-08-13 23:15 | NUR ---
PATIENT STATES THE TYLENOL WAS NOT EFFECTIVE. THIS NURSE OFFERED TO CALL THE DOCTOR FOR SOMETHING ELSE. PATIENT REFUSING. STATES SHE DOESNT WANT ANYTHING THAT WILL CAUSE HER TO BECOME ADDICTED.
[2019-08-14] VITALS: BP 155/58
--- NOTE | 2019-08-14 05:37 | NUR ---
PATIENT C/O BLE PAIN. GIVEN TYLENOL AT THIS TIME. WILL CONTINUE TO MONITOR.
[2019-08-14 07:38] LABS: CREATININE 1.14 mg/dL (0.55-1.02); POTASSIUM 3.5 mmol/L (3.5-5.1)
[2019-08-14 08:00] VITALS: BP 108/42
--- NOTE | 2019-08-14 11:29 | NUR ---
Hops Farmworker in to see patient. Discussed short term SNF and she is agreeable. When provided with a list of facilities she chose [facility]. equipment planner notified.
--- NOTE | 2019-08-14 11:30 | NUR ---
Occupational therapy orders received and OT evaluation completed in full on floor four. Patient precautions include fall risk, CUSTOMER SERVICE ENGINEER, weakness, and B/L LE edema/pain. Per OT eval, OT recommends SNF. If refused, home with HH SN, OT, and PT with continued 24/7 supervision assist. Patient would benefit from continued OT treatment to maximize safety and independence with ADLs, transfers, and mobility[place], [id number]. Thank you for the referral. Destiny Rivera, OTR/L
[2019-08-14 12:00] VITALS: BP 143/67
--- NOTE | 2019-08-14 12:48 | NUR ---
[facility] Contacted facililty and faxed initital referral. Waiting on PT/OT evals. Requires precert.
--- NOTE | 2019-08-14 14:52 | NUR ---
PT and OT evals faxed to [facility]. still waiting for acceptance.
[2019-08-14 16:00] VITALS: BP 123/53
[2019-08-14 20:00] VITALS: BP 130/43
--- NOTE | 2019-08-14 21:14 | NUR ---
PATIENT RESTING IN BED, C/O LEG PAIN. GIVEN TYLENOL. RESPIRATIONS EASY,NON LABORED. VOICES NO OTHER COMPLAINTS. BED IN LOWEST POSITION,CALL LIGHT WITHIN REACH. WILL CONTINUE TO MONITOR.
[2019-08-15] VITALS: BP 113/50
--- NOTE | 2019-08-15 | NUR ---
PT AWAKE, A&O, ASSISTED UP TO BSC AND THEN BACK TO BED. SOB WITH EXERTION, NO ACUTE DISTRESS NOTED. NO COMPLAINTS VOICED. ALESSANDRA PATENT.
--- NOTE | 2019-08-15 07:05 | NUR ---
[facility] stating they have reviewed the referral and they would like to review more information once patient is more stable for discharge. Patient requires precert.
--- NOTE | 2019-08-15 07:45 | NUR ---
pt awake alert and oriented x3, receiving breathing treatment at this time. no signs of distress noted, exp wheeze t/o and crackles noted to bases of b/l lungs, denies any chest pain of sob, hr72 per cm, edema noted from toes to hips 3+, denies n/v/d/c, complains about fluid restriction. will cont to monitor. call light in reach.
[2019-08-15 07:49] VITALS: BP 140/60
--- NOTE | 2019-08-15 08:01 | NUR ---
PT WAS RECEIVING BREATHING TREATMENT UPON ENTERING. PT HAS ORDERED BREAKFAST AND WAIING FOR IT TO ARRIVE. ANMOL BROUSSARD [facility]
--- NOTE | 2019-08-15 09:12 | NUR ---
OT NOTE PATIENT SEEN 1:1 OT THIS DATE. PATIENT IDENTIFIED BY NAME AND DATE OF . COMPLETED 26 MINUTES OT THIS DATE. COMPLETED BED MOBILTY SUPINE TO SIT EOB CGA INCREASE TIME USE OF RAIL. COMPLETED SIT TO STAND FROM BED CGA. COMPLETED UB DRESSING/BATHING MIN A AND LB DRESSING MOD A WITH PATIENT EDUCATED BENEFITS USE AE INCREASE INDEPENDENCE REACHING FEET. PATIENT DECLINED BATH LB REPORTING THAT HER LB WAS ALREADY CLEAN. PATIENT COMPLETED SIT TO STAND FROM BED CGA AND MIN A USE FWW AMBULATING SHORT DISTANCE USE FWW TO RECLINER WITH INCREASE TIME AND MIN VERBAL CUES POSTURE AND PROPER GAIT. PATIENT REPORTS 7/10 PAIN BILETERAL HIP WITH AMBULATION. PATIENT SEATED IN RECLINER WITH PATIENT IN CARE OF NURSING STUDENTS. CONTINUE TOWARDS PLAN OF CARE. SHAKEEL MARLOW/Jordan
[2019-08-15 09:26] LABS: CREATININE 1.3 mg/dL (0.55-1.02); POTASSIUM 4.2 mmol/L (3.5-5.1)
--- NOTE | 2019-08-15 10:11 | NUR ---
PT IS CURRENTLY IN BED, PT IS PLEASANT AND COOPERATIVE. ANMOL BROUSSARD [facility]
--- NOTE | 2019-08-15 10:35 | NUR ---
PHYSICAL THERAPY Patient seen this am 1;1 for therapy visit and was supine in bed upon therapist arrival. Patient identified by name / and presented with continuous O2-2L via NC. Student nurse was in room during EVENT MANAGEMENT CONSULTANT visit this morning as patient reports no new c/o's at this time and transfers supine to sit EOB with MIN A x 1. Patient request use of BSC and removed O2 stating she doesn't use O2 at home and that 02 cord would not reach anyway. Patient peformed sit to stand transfer, DRAFTER MECHANICAL/MIN, completing SPT to BSC. After toileting, patient transfered back to EOB sit, recording SpO2 90%, HR 92 bpm. Patient placed O2 back on and following brief 30 second seated rest, recorded SpO2 95%, HR 85 bpm. Patient also completed seated B LE therex, all planes, x 10 reps each, then returned to supine in bed, while remaining with call light, tray table and telephone. Will continue per POC as tolerated, total treatment time 16 minutes. Asher Lozoya, EVENT MANAGEMENT CONSULTANT
[2019-08-15 11:46] VITALS: BP 143/59
--- NOTE | 2019-08-15 11:51 | NUR ---
PT IS CURRENTLY EATING LUNCH IN BED AND BEING PLEASANT. ANMOL BROUSSARD [facility]
--- NOTE | 2019-08-15 12:51 | NUR ---
Pt stated she felt pressure as if she had to void and that nothing would come out. Bladder scan was done and the test showed 320ml in the bladder after she had just voided 25ml. Sharon Alvarado [facility]
--- NOTE | 2019-08-15 14:00 | NUR ---
ONEIL INSERTED USING ASEPTIC TECHNIQUE, HAD AN IMMEDIATE RETURN OF CLEAR YELLOW URINE 250CC, PT TOLERATED WELL ANMOL BROUSSARD [facility]
--- NOTE | 2019-08-15 14:40 | NUR ---
PT MEDICATED WITH TYLENOL AT THIS TIME FOR BACK PAIN. WILL CONTINUE TO MONITOR.
[2019-08-15 16:00] VITALS: BP 125/54
[2019-08-15 20:00] VITALS: BP 133/48
--- NOTE | 2019-08-15 22:53 | NUR ---
PATIENT RESTING IN BED. CALL LIGHT WITHIN REACH. NO COMPLAINTS AT THIS TIME. WILL CONTINUE TO MONITOR.
--- NOTE | 2019-08-15 23:09 | NUR ---
24 HR chart check completed.
[2019-08-16] VITALS (14 sets, daily range): BP systolic 105–135; BP diastolic 33–72
--- NOTE | 2019-08-16 05:13 | NUR ---
TYLENOL GIVEN PER PATIENT REQUEST FOR COMPLAINTS OF HEADACHE RATED 7/10. WILL ASSESS EFFECTIVENESS.
[2019-08-16 07:05] LABS: CREATININE 1.35 mg/dL (0.55-1.02)
--- NOTE | 2019-08-16 08:15 | NUR ---
PT C/O DISCOMFORT TO TONGUE. TONGUE APPEARED RED, DRY AND LEATHER LIKE. DR MARTE NOTIFIED AND NEW ORDERS RECEIVED FOR NYSTATIN.
--- NOTE | 2019-08-16 09:00 | NUR ---
Sensor Specialist in to see patient. No new needs or request at this time. When medically stable, accepted, and precert is received she will be discharged to [facility]. tool planner following.
--- NOTE | 2019-08-16 09:31 | NUR ---
Shift chart check completed.
--- NOTE | 2019-08-16 10:00 | NUR ---
PT TRANSFERED TO ICCU. PT IS ALERT AND ORIENTED. NSR RATE 70 ON TELETYPE MECHANIC. BP 109/50. 94% ON 2L NC. ONEIL DRAINING EUFEMIA COLORED URINE.
--- NOTE | 2019-08-16 10:00 | NUR ---
PT TRANSPORTED TO THE [facility]U AT THIS TIME PER DR ORDER. NURSE TO NURSE REPORT PROVIDED TO LOURDES ZHANG.
--- NOTE | 2019-08-16 11:08 | NUR ---
ECHO IN PROCESS
--- NOTE | 2019-08-16 11:50 | NUR ---
DR CARDONA HERE AND PICC EXPLAINED TO PATIENT - OK TO GIVE HYDRALIZINE IF SBP>120
--- NOTE | 2019-08-16 13:48 | NUR ---
PICC LINE IN - AWAITING CXR REPORT. PATIENT HAS NASTY MOIST NONPROD COUGH. SPUTUM CUP AT BEDSIDE. US/UC SENT PER REQUEST OF DR FREDERICK
[2019-08-16 14:04] LABS: BILIRUBIN NEGATIVE (NEGATIVE); BLOOD 3+ (NEGATIVE); CLARITY CLOUDY (CLEAR); COLOR YELLOW (YELLOW); GLUCOSE NEGATIVE (NEGATIVE); KETONE NEGATIVE (NEGATIVE); LEUKO ESTERASE NEGATIVE (NEGATIVE); NITRITE NEGATIVE (NEGATIVE); PH 6.5 (5.0-9.0); SPECIFIC GRAVITY 1.015 (1.005-1.030); UROBILINOGEN 0.2 E.U./dl (0.2-1.0)
[2019-08-16 14:09] LABS: BACTERIA TRACE; RBC TNTC rbc/hpf (0-2)
--- NOTE | 2019-08-16 14:10 | NUR ---
TYLENOL GIVEN FOR GEN C/O ACHES
--- NOTE | 2019-08-16 15:06 | NUR ---
UNABLE TO START MEDS ORDERED STILL AWAITING RADIOLOGY REPORT ON PICC LINE PLACEMENT. RADIOLOGY CALLED AND THEY ARE TRYING TO GET IT READ.
--- NOTE | 2019-08-16 15:17 | NUR ---
PATIENT TO RADIOLOGY FOR ULTRASOUND OF KIDNEYS - STILL AWAITING CXR REPORT
--- NOTE | 2019-08-16 16:56 | NUR ---
PATIENT SITTING UPIN BED EATING - IV MILRINONE STARTED. DR CARDONA VISITED.
--- NOTE | 2019-08-16 20:00 | NUR ---
Patient lying in bed, states she is feeling better since the morning. But patient also thought it was moring, I oriented her to the time of being pm. Patient denies any pain at this time. Didnt want to be moved in bed, stated she was comfortable. Patient given call light.
--- NOTE | 2019-08-16 21:12 | NUR ---
Patient was offered a bath, refused at this time. Stated she might get one when she wakes.
[2019-08-17] VITALS (11 sets, daily range): BP systolic 119–143; BP diastolic 41–69
--- NOTE | 2019-08-17 04:09 | NUR ---
Patient given tylenol for a headache. Will monitor and reassess.
[2019-08-17 05:01] LABS: ALBUMIN 2.8 gm/dl (3.1-4.5); CREATININE 1.39 mg/dL (0.55-1.02); POTASSIUM 5.1 mmol/L (3.5-5.1)
--- NOTE | 2019-08-17 06:12 | NUR ---
Tylenol effective for headache.
--- NOTE | 2019-08-17 09:00 | NUR ---
Roof Bolter Helper in to see patient. No new needs or request at this time. When medically stable, accepted, and precert is received she will be discharged to [facility]. business planner following.
--- NOTE | 2019-08-17 11:34 | NUR ---
OCCUPATIONAL THERAPY CO-SIGN [facility] She will need new OT orders when medically able to participate. I approve of the Occupational Therapy notes written above. DAWNA RODRIGEZ OTR/L
--- NOTE | 2019-08-17 20:13 | NUR ---
Patient wanted to get up and get bed changed, didnt want to get a bath tonight, she stated in the am. Patient moving and getting out of bed by self. Has a little pain with the catheter. Patient back in bed, with call light in reach.
[2019-08-18] VITALS: BP 136/56
[2019-08-18 04:00] VITALS: BP 139/46
[2019-08-18 06:30] LABS: CREATININE 1.22 mg/dL (0.55-1.02)
[2019-08-18 08:00] VITALS: BP 154/43
--- NOTE | 2019-08-18 08:00 | NUR ---
24 HR chart check completed. PT UP TO BEDSIDE CHAIR WITH MINIMAL ASSIST. BUMEX AND MILRINONE INFUSING WITOUT DIFFICULTY. PT WITH ONEIL CAHTETER IN PLACE AND INTACT. ONGOING URINE OUTPUT NOTED. PT REPORTS BREATHING A BIT EASIER AND EDEMA HAS IMPROVED. REMAINS 1+ IN LOWER LEGS AND THIGHS. BREAKFAST ORDERED. PT ABLE TO COLLEEN OWN WEIGHT WITH MINIMAL ASSIST. PT DENIES ANY FURTHER NEEDS AT THIS TIME. RN TO CONTINUE TO MONITOR.
--- NOTE | 2019-08-18 09:15 | NUR ---
HUMIDIFIED OXYGEN PLACED DUE TO REPORTED DRY NARES WITH OXYGEN USE.
--- NOTE | 2019-08-18 09:30 | NUR ---
PT ASSISTED UP TO BEDSIDE COMMODE. 1200 URINE OUTPUT NOTED IN ONEIL. CLEAR TO EUFEMIA.
--- NOTE | 2019-08-18 09:54 | NUR ---
DR. Willson CALLED IN AND UPDATED ON PATIENT'S CONDITION
--- NOTE | 2019-08-18 11:13 | NUR ---
PT RESTING ON BED WITH EASY RESPIRATIONS AT THIS TIME. LUNCH ORDERED. PT BECAME SLIGHTLY SHORT OF BREATH WITH LENGTHY TALKING. NO DISTRESS AT THIS TIME NOW. RN TO CONTINUE TO MONITOR.
[2019-08-18 12:00] VITALS: BP 139/50
--- NOTE | 2019-08-18 13:03 | NUR ---
PT RESTING ON BED WITH REPORTS OF LEG AND FEET CRAMPS. PT ADJUSTED FOR COMFORT. PT STILL REPORTS PAIN. TYLENOL TO BE GIVEN PER ORDER
[2019-08-18 16:00] VITALS: BP 127/54
[2019-08-18 20:00] VITALS: BP 136/50
--- NOTE | 2019-08-18 20:00 | NUR ---
PT RESTING IN BED LOOKING COMPUTER, A&O, PLEASANT AND COOPERTIVE WITH STAFF. RESP DYSPNEIC WITH ANY EXERTION. NO ACUTE DISTRESS NOTED. NO COMPLAINTS VOICED. RIGHT PICC PATENT AND IVF'S INFUSING ORDERED WITHOUT DIFFICULTY.
[2019-08-19] VITALS: BP 135/59
[2019-08-19 04:00] VITALS: BP 144/54
[2019-08-19 07:09] LABS: BUN 30 mg/dl (7-24); CHLORIDE 91 mmol/L (98-107); CREATININE 1.08 mg/dL (0.55-1.02); POTASSIUM 3.5 mmol/L (3.5-5.1); SODIUM 133 mmol/L (136-145)
[2019-08-19 08:00] VITALS: BP 130/61
--- NOTE | 2019-08-19 09:18 | NUR ---
MEDICATED WITH 2 TYLENOL FOR COMPLAINTS OF BACK PAIN. RATES PAIN A 10 ON A PAIN SCALE OF 1-10
--- NOTE | 2019-08-19 11:00 | NUR ---
MEDICATED WITH ZOFRAN FOR FEELING OF NAUSEA.
[2019-08-19 16:00] VITALS: BP 118/49
[2019-08-19 20:00] VITALS: BP 118/40
--- NOTE | 2019-08-19 20:00 | NUR ---
PT RESTING IN BED WITH EYES CLOSED, AWAKENS WITH EASE. RESP NONLABORED. NO ACUTE DISTRESS NOTED. NO COMPLAINTS VOICED. RIGHT PICC PATENT AND IVF'S INFUSING ORDERED WITHOUT DIFFICULTY.
[2019-08-20] VITALS (7 sets, daily range): BP systolic 106–134; BP diastolic 37–63
[2019-08-20 05:00] LABS: CREATININE 1.25 mg/dL (0.55-1.02); POTASSIUM 4.4 mmol/L (3.5-5.1)
--- NOTE | 2019-08-20 09:00 | NUR ---
Data Integration Analyst in to see patient. No new needs or request at this time. When medically stable, accepted, and precert is received she will be discharged to [facility]. tool and production planner following.
--- NOTE | 2019-08-20 09:57 | NUR ---
DR SÁNCHEZ AND DR ADORNO IN TO SEE PT EARLIER. NEW ORDERS RECEIVED FROM DR ADORNO.
--- NOTE | 2019-08-20 09:59 | NUR ---
IV BUMEX GTT D/C'D AND IV PRIMACOR GTT TITRATED TO HALF DOSE 1.7CC/HR THEN TO BE DC/'D IN 1 [address] PER ORDER OF DR ADORNO.
--- NOTE | 2019-08-20 12:42 | NUR ---
PT RESTIG. NO ACUTE DISTRESS NOTED.
--- NOTE | 2019-08-20 13:51 | NUR ---
MEDICATED PT PER PRN ORDER WITH TYLENOL FOR C/O PAIN IN HER FEET PER PT REQUEST. PT RATES PAIN 7/10 ON PAIN SCALE.
--- NOTE | 2019-08-20 14:30 | NUR ---
PT STATED TYLENOL EFFECTIVE FOR KNEE PAIN.
--- NOTE | 2019-08-20 17:30 | NUR ---
UPDATED DR MARTE ON PTS BLOOD SUGAR RESULTS. NEW ORDERS RECEIVED.
[2019-08-21] VITALS (7 sets, daily range): BP systolic 92–146; BP diastolic 50–68
[2019-08-21 05:24] LABS: CREATININE 1.11 mg/dL (0.55-1.02); POTASSIUM 4.1 mmol/L (3.5-5.1)
--- NOTE | 2019-08-21 07:59 | NUR ---
Patient updated clinicals faxed to [facility] for review. waiting on acceptance.
--- NOTE | 2019-08-21 08:37 | NUR ---
Physical Therapy evaluation completed with full evaluation to follow. Recommend physical therapy per plan of care and SNF upon discharge. Thank you for this referral. Saba Alexander PT
--- NOTE | 2019-08-21 08:50 | NUR ---
DR SÁNCHEZ IN TO SEE PT.
--- NOTE | 2019-08-21 08:55 | NUR ---
PT UP TO CHAIR WITH HELP OF PHYSICAL/OCCUPATIONAL THERAPIES. PT DENIES COMPLAINTS AT THIS TIME.
--- NOTE | 2019-08-21 09:01 | NUR ---
Occupational Therapy evaluation completed on ICC[facility] with full evaluation to follow. Recommend occupational therapy per plan of care and SNF upon discharge. Thank you for this referral. SHEEBA GONZALEZ OTR/L
--- NOTE | 2019-08-21 10:54 | NUR ---
New therapy evals faxed to [facility] for review, waiting on acceptance, requires precert.
--- NOTE | 2019-08-21 11:00 | NUR ---
Closed Circuit Screen Watcher in to see patient. No new needs or request at this time. When medically stable, accepted, and precert is received she will be discharged to [facility]. airport planner following.
--- NOTE | 2019-08-21 13:20 | NUR ---
PT TRANSFERED TO 427 VIA BED. PT REPORT GIVEN TO RECEIVING NURSE.
--- NOTE | 2019-08-21 16:38 | NUR ---
Spoke with to clarify information I obtained from nurse to nurse report this afternoon. Per blood pressure medications are to be held only for SBP<90.
--- NOTE | 2019-08-21 22:00 | NUR ---
HYDRAZALINE HELD BP LOW.
[2019-08-22] VITALS (7 sets, daily range): BP systolic 100–131; BP diastolic 39–68
--- NOTE | 2019-08-22 01:49 | NUR ---
sleeping no distress noted.
[2019-08-22 06:21] LABS: INTERNATIONAL NORM RATIO 0.9 (2.0-3.5)
--- NOTE | 2019-08-22 07:45 | NUR ---
PHYSICAL THERAPY Patient seen this am 1;1 for therapy visit and was sitting on BSC upon therapist arrival. Patient identified by name / and reports chronic B Knee pain 09/27. OT engineering inspection assistant was also present this morning for observation only this session as patient transfers sit to stand CGA, completing SPT to EOB sit. Patient performed several sit to stand transfers, CGA, tolerating approx 1 minute static stand and was very cautious for fear of falling. Patient needed several seated rest breaks secondary to quick onset of fatigue and was also able to complete seated B LE therex, including LAQ / marching x 10 reps each. Patient returned to supine in bed and remained with call light, tray table, telephone and bed alarm for safety. Will continue per POC as tolerated, total treatment time 17 minutes. Asher Lozoya, MANAGER NEW PRODUCT
--- NOTE | 2019-08-22 07:51 | NUR ---
OT NOTE Pt was seen this A.M. 1:1 for 20 minute OT session. Upon arrival pt was sitting upright on the bedside commode. Pt identified by name and and had complaints of 4/10 B knee pain. Pt presented to therapy with continuous 2L-O2 via NC which she remained on throughout the entire session and resting heart rate 51 bpm. Pt completed toilet hygiene with SBA while seated and sit to stand completed with Tierra followed by standing pivot to the EOB. Pt completed multiple sit to stand transfers from bed level with Tierra RISK CONTROL MANAGER. Challenged pt's static standing tolerance needed for increased I in self care tasks and functional transfers and pt was able to tolerate aprox 2 minutes at a time before sitting due to fatigue. Challenged pt's dynamic standing balance needed for increased I and enhanced safety in self care tasks. While weight shifting, crossing midline, and reaching over all planes pt was able to maintain F-/F standing balance. Pt then transferred back into bed sit to supine with SBA. There she was left with call light in hand, tray table in place, and bed alarm activated for safety. Continue with rec D/C plan to SNF. ELE Jurado/Jordan
--- NOTE | 2019-08-22 09:00 | NUR ---
Corrections Caseworker in to see patient. No new needs or request at this time. When medically stable, accepted, and precert is received she will be discharged to [facility]. habitat conservation planner following.
--- NOTE | 2019-08-22 09:07 | NUR ---
hospital exemption completed for [facility]
--- NOTE | 2019-08-22 10:05 | NUR ---
PATIENT MEDICATED WITH PRN ZOFRAN FOR C/O NAUSEA.
--- NOTE | 2019-08-22 11:00 | NUR ---
JEOVANY HELPED A LITTLE.
--- NOTE | 2019-08-22 14:45 | NUR ---
MEDICATED WITH ORN TYLENOL FOR C/O R SHOULDER PAIN.
--- NOTE | 2019-08-22 18:00 | NUR ---
PATIENT FOUND ON FLOOR. DR. MARTE AND CHAIN HOOKER AWARE.
--- NOTE | 2019-08-22 19:30 | NUR ---
TOOK OVER CARE OF PT AT THIS TIME. PT RESTING IN BED, EYES OPEN. PT ALERT ORIENTED AND PLEASANT. NO COMPLAINTS AT THIS TIME. ALL NEEDS ARE MET. SAFETY MEASURES IN PLACE. CALL LIGHT IN REACH.
[2019-08-23] VITALS (8 sets, daily range): BP systolic 96–176; BP diastolic 37–54
--- NOTE | 2019-08-23 04:00 | NUR ---
AIRCRAFT LIFE SUPPORT FITTER CALLS THIS NURSE AND STATES THAT PT HEART RATE IS 34 AT TIMES. UPON ENTERING ROOM TO CHECK ON PT, PT IS UP TO BEDSIDE COMMODE WITH ASSISTANCE OF 2 PATIENT ATTENDANTS. PT HAS NO COMPLAINTS OF DIZZINESS OR CHEST PAIN. EKG PER NURSING MEASURE ORDERED AND DR CARDONA PAGED VIA ANSWERING SERVICE. AWAITING CALL BACK.
--- NOTE | 2019-08-23 04:15 | NUR ---
DR CARDONA NOTIFIED OF HEART RATE AND UPDATED ON PT STATUS. PHYSICIAN STATES TO CALL BACK WHEN EKG OBTAINED.
--- NOTE | 2019-08-23 04:35 | NUR ---
DR CARDONA NOTIFIED OF NEW EKG RESULTS AND HEART RATE OF 37. PHYSICIAN ALSO NOTIFIED THAT EKG FINDING OF INFERIOR INFARCT, RECENT. NEW ORDERS RECEIVED AT THIS TIME TO HOLD METOPROLOL 25 MG TODAY AND TO HOLD BUMEX 1 MG THIS MORNING. OKAY GIVEN TO GIVE APPRESOLINE THIS MORNING, LONG BP IS GREATER THAN 90 SYSTOLIC. WHEN OBTAIN BP BEFORE GIVING MEDS. WILL CONTINUE TO MONITOR PT.
--- NOTE | 2019-08-23 07:53 | NUR ---
PT. REFUSED AEROSOL TREATMENT. C/O NAUSEA
--- NOTE | 2019-08-23 08:22 | NUR ---
PATIENT C/O NAUSEA MEDICATED WITH PRN ZOFRAN. PATIENT IS DUSKY IN COLOR AND HR 30'S. DR. TAYLOR AT DESK AND SAID TO MOVE PATIENT TO THE ICCU AND PLACE PACER PADS. YOLEI RN GIVEN REPORT AT BEDSIDE.
[2019-08-23 08:39] LABS: BASO # 0.1 10*3/uL (0.0-0.1); BASO % 1.4 % (0.0-1.0); EOS # 0.1 10*3/uL (0.0-0.4); EOS % 1.4 % (1.0-4.0); HEMATOCRIT 37.7 % (37.0-47.0); HEMOGLOBIN 11.3 g/dl (12.0-16.0); LYMPH # 1.5 10*3/uL (1.3-4.4); LYMPH % 17.2 % (27.0-41.0); MEAN CELL VOLUME 90.2 fl (81.0-99.0); MEAN PLATELET VOLUME 12.8 fl (9.6-12.3); MONO # 1.1 10*3/uL (0.1-1.0); MONO % 11.9 % (3.0-9.0); NEUT % 67.6 % (47.0-73.0); PLATELET COUNT AUTOMATED 250 10*3/uL (130-400); RED BLOOD COUNT 4.18 10*6/uL (4.10-5.10); RED CELL DISTRI WIDTH 15.9 % (0-14.5); WHITE BLOOD COUNT 8.9 10*3/uL (4.8-10.8)
--- NOTE | 2019-08-23 08:45 | NUR ---
RECEIVED PATIENT FROM [facility]. PATIENT HR 30'S AND PATIENT SYMPTOMATIC. PATIENT REPORTS FEELING DIZZY, SHORT OF BREATHE, HEADACHE AND FEELS LIKE SHE IS GONNA FAINT. ATROPINE GIVEN X2. DEFIB PADS PLACED IN CASE PATIENT WILL BE PACED. CALCIUM GLUCONATE GIVEN.
[2019-08-23 08:53] LABS: ALBUMIN 2.9 gm/dl (3.1-4.5); CREATININE 2.8 mg/dL (0.55-1.02); TOTAL PROTEIN 7.4 gm/dL (6.4-8.2)
[2019-08-23 08:56] LABS: POTASSIUM 7.2 mmol/L (3.5-5.1)
--- NOTE | 2019-08-23 09:00 | NUR ---
Discussed discharge planning with Dr. De La Fuente. Patient has recently been moved back to the unit due to bradycardia. landscape architect and planner following for referral to [facility].
[2019-08-23 09:23] LABS: CREATININE 2.54 mg/dL (0.55-1.02)
[2019-08-23 09:26] LABS: POTASSIUM 7.1 mmol/L (3.5-5.1)
--- NOTE | 2019-08-23 09:30 | NUR ---
PATIENT PULSE OX DROPPED FROM 94% ON NC TO 50% WITHOUT RECOVERY. PATIENT HAS POOR PERFUSION AND COLD EXTREMITIES. PATIENT PLACED ON A NON-REBREATHER AT 15L.
--- NOTE | 2019-08-23 10:03 | NUR ---
DR. ADORNO IN TO SEE PATIENT. NO NEW ORDERS GIVEN AT THIS TIME.
--- NOTE | 2019-08-23 10:30 | NUR ---
PATIENT PULSE OX STILL IN THE 70'S AND BEING MANUALLY BAGGED AT THIS TIME. PATIENT INTUBATED WITH 7.5, 24@ LIP, CMV 12, TV 500. NG TUBE AND ET TUBE CONFIRMED BY CXR PATIENT STARTED ON DOBUTAMINE AND DOPAMINE AT 5MCG. PATIENT HEART RATE INPROVED TO 50'S PER CM. RIJ MULTILUMEN PLACED BY DR. VEGA AND CONFIRMED BY CXR. ART LINE PLACED BY DR. JUÁREZ. PATIENT STARTED ON A FENTANYL DRIP TO MAINTAIN ADEQUATE PRESSURES.
--- NOTE | 2019-08-23 10:32 | NUR ---
PHYSICAL THERAPY PATIENT WAS MOVED BACK OT ICCU-4 THIS MORNING DUE TO A HEALTH DECLINE. WILL NEED NEW EVALUATION. SARAH DAN ACCOUNTS PAYABLES CLERK
[2019-08-23 10:47] LABS: ABG BASE EXCESS -0.4 mmol/L (-2.0-2.0); ARTERIAL BLOOD GAS PH 7.256 (7.35-7.45)
--- NOTE | 2019-08-23 12:40 | NUR ---
DR. SÁNCHEZ NOTIFIED OF ABG RESULTS. ORDERS RECEIVED. ABG WILL BE REDRAWN AT 1400.
[2019-08-23 12:47] LABS: ABG BASE EXCESS -4.3 mmol/L (-2.0-2.0); ARTERIAL BLOOD GAS PH 7.377 (7.35-7.45)
--- NOTE | 2019-08-23 12:58 | NUR ---
FIO2 DECREASED TO 50% PER DR. SÁNCHEZ
--- NOTE | 2019-08-23 13:00 | NUR ---
SPOKE WITH DR. FREDERICK REGARDING NEW POTASSIUM RESULT OF 6.3. ORDERS RECEIVED FOR AMP OF D50 AND 10 UNIT IV INSULIN TO BE GIVEN. ALSO PATIENT WILL BE GIVEN A 500CC BOLUS AND CMP TO BE DRAWN BY 1600.
[2019-08-23 13:11] LABS: ALBUMIN 2.6 gm/dl (3.1-4.5); CREATININE 2.6 mg/dL (0.55-1.02); TOTAL PROTEIN 6.7 gm/dL (6.4-8.2)
[2019-08-23 13:12] LABS: POTASSIUM 6.3 mmol/L (3.5-5.1)
[2019-08-23 14:14] LABS: ABG BASE EXCESS -6.8 mmol/L (-2.0-2.0); ARTERIAL BLOOD GAS PH 7.414 (7.35-7.45)
[2019-08-23 14:34] LABS: ABG BASE EXCESS 1.3 mmol/L (-2.0-2.0); ARTERIAL BLOOD GAS PH 7.444 (7.35-7.45)
--- NOTE | 2019-08-23 16:19 | NUR ---
HEPARIN DRIP INITIATED AT THIS TIME. STARTING RATE OF 11.4 UNIT/HR.
[2019-08-23 16:54] LABS: ALBUMIN 2.5 gm/dl (3.1-4.5); CREATININE 2.65 mg/dL (0.55-1.02); POTASSIUM 5.8 mmol/L (3.5-5.1); TOTAL PROTEIN 6.6 gm/dL (6.4-8.2)
--- NOTE | 2019-08-23 17:00 | NUR ---
UPDATED DR. FREDERICK WITH CMP RESULTS. ORDERS GIVEN FOR 1 AMP D50 AND 10 UNITS OF INSULIN TO BE GIVEN. PATIENT WILL BE GIVEN ANOTHER 500CC OF FLUID. CMP TO BE DRAWN AT 2200.
[2019-08-23 17:18] LABS: ABG BASE EXCESS -1.5 mmol/L (-2.0-2.0); ARTERIAL BLOOD GAS PH 7.362 (7.35-7.45)
[2019-08-23 18:54] LABS: COLOR YELLOW (YELLOW)
[2019-08-23 18:55] LABS: BILIRUBIN NEGATIVE (NEGATIVE); BLOOD 3+ (NEGATIVE); CLARITY CLOUDY (CLEAR); GLUCOSE NEGATIVE (NEGATIVE); KETONE NEGATIVE (NEGATIVE); LEUKO ESTERASE 1+ (NEGATIVE); NITRITE POSITIVE (NEGATIVE); SPECIFIC GRAVITY 1.015 (1.005-1.030); UROBILINOGEN < 1.0 E.U./dl (0.2-1.0)
[2019-08-23 19:02] LABS: BACTERIA 2+; MUCOUS TRACE; RBC TNTC rbc/hpf (0-2); WBC TNTC wbc/hpf (0-5)
--- NOTE | 2019-08-23 20:00 | NUR ---
PT RESTING IN BED WITH EYES CLOSED, ENDOTUBE PATENT, TIES SECURE. VENT SETTINGS VERIFIED AND FUNCTIONING WITHOUT DIFFICULTLY. OGT PATENT, PLACEMENT VERIFIED. RIGHT IJ MLC AND RIGHT PICC PATENT, DRESSINGS DRY AND INTACT. IVF'S IFUSING ORDERED WITHOUT DIFFICULTY. ONEIL PATENT AND DRAINING WITHOUT DIFFICULTY. NO ACUTE DISTRESS NOTED. DIPRIVAN EFFECTIVE FOR SEDATION. FAMILY IN TO VISIT.
[2019-08-23 22:50] LABS: ALBUMIN 2.5 gm/dl (3.1-4.5); CREATININE 2.62 mg/dL (0.55-1.02); POTASSIUM 5.7 mmol/L (3.5-5.1); TOTAL PROTEIN 6.5 gm/dL (6.4-8.2)
--- NOTE | 2019-08-23 23:30 | NUR ---
DR FREDERICK NOTIFIED OF LABS ORDERED. NEW ORDERS FOR 10U REGULAR INSULIN X1 NOW, 1 AMP D50, KAYEXELATE 30GM X1 NOW, LACTULOSE X1 IN 2 HOURS AFTER KAYEXELATE, CEFEPIME 1GM IV DAILY AND GIVE DOSE NOW, D/C BUMEX.
[2019-08-24] VITALS (12 sets, daily range): BP systolic 93–148; BP diastolic 38–54
--- NOTE | 2019-08-24 03:00 | NUR ---
MEDICATED WITH TYLENOL PER PRN ORDER FOR T101.3(R).
[2019-08-24 06:06] LABS: ABG BASE EXCESS 3.1 mmol/L (-2.0-2.0); ARTERIAL BLOOD GAS PH 7.395 (7.35-7.45)
[2019-08-24 07:03] LABS: HEMATOCRIT 31.1 % (37.0-47.0); HEMOGLOBIN 9.6 g/dl (12.0-16.0); MEAN CORPUSCULAR HGB 26.5 pg (27.0-31.0); MEAN CORPUSCULAR HGB CONC 30.9 g/dl (33.0-37.0); MEAN PLATELET VOLUME 12.8 fl (9.6-12.3); PLATELET COUNT AUTOMATED 275 10*3/uL (130-400); RED BLOOD COUNT 3.62 10*6/uL (4.10-5.10); RED CELL DISTRI WIDTH 15.9 % (0-14.5); WHITE BLOOD COUNT 15.8 10*3/uL (4.8-10.8)
[2019-08-24 07:06] LABS: MEAN CELL VOLUME 85.9 fl (81.0-99.0)
[2019-08-24 07:08] LABS: ALBUMIN 2.5 gm/dl (3.1-4.5); CREATININE 2.83 mg/dL (0.55-1.02); POTASSIUM 5.4 mmol/L (3.5-5.1); TOTAL PROTEIN 6.7 gm/dL (6.4-8.2)
[2019-08-24 07:34] LABS: BURR CELLS FEW; OVALOCYTES FEW; PLATELET SUFFICIENCY NORMAL (NORMAL); POLYCHROMASIA SLIGHT; SCHISTOCYTES FEW; TOTAL CELLS COUNTED 100 #CELLS
--- NOTE | 2019-08-24 10:12 | NUR ---
AT BEDSIDE. PROPOFOL GTT DISCONTINUED. PLACED ON CPAP 10/5. ABG IN 2HOURS.
--- NOTE | 2019-08-24 11:00 | NUR ---
Medical Reception in to see patient. She is currently intubated. Discharge plan undecided at this time.
[2019-08-24 12:27] LABS: ABG BASE EXCESS 2.1 mmol/L (-2.0-2.0); ARTERIAL BLOOD GAS PH 7.397 (7.35-7.45)
--- NOTE | 2019-08-24 12:59 | NUR ---
PATIENT EXTUBATED PER DOCTORS ORDERS. PATIENT TOLERATED WELL WITH NO INCIDENT. PLACED ON BIPAP AT 14/8 30% TOLERATING WELL WITH GOOD BILATERAL BREATH SOUNDS. SPO2:99%, HEART RATE 73. ABG AT 1500.
--- NOTE | 2019-08-24 13:00 | NUR ---
PHYSICAL THERAPY CO-SIGN I approve of the Physical Therapy notes written above. Saba Alexander PT
[2019-08-24 14:43] LABS: BACTERIA 3+; RBC TNTC rbc/hpf (0-2); WBC TNTC wbc/hpf (0-5)
[2019-08-24 15:08] LABS: ABG BASE EXCESS 1.8 mmol/L (-2.0-2.0); ARTERIAL BLOOD GAS PH 7.387 (7.35-7.45)
--- NOTE | 2019-08-24 15:40 | NUR ---
TAKEN OFF BI-PAP AND ORAL CARE PROVIDED. LIPS AND TONGUE BLOODY. ALERT AND ORIENTED TIMES THREE. HAVING VISUAL HALLUCINATIONS. SEEING A BLACK SPOT AT BATHROOM DOORWAY. WHEEZES HEARD IN LUNG SHAW. MOIST COUGH NOTED. 1+ PITTING EDEMA NOTED TO BILATERAL LOWER EXTREMITIES. ONEIL DRAINING DARK EUFEMIA URINE. PULSE OX 97% ON 3L NASAL CANNULA.
[2019-08-24 17:40] LABS: CREATININE 2.97 mg/dL (0.55-1.02); POTASSIUM 5.5 mmol/L (3.5-5.1)
--- NOTE | 2019-08-24 20:52 | NUR ---
Patient very restless on bipap, grabbing at the air, states she sees stuff flying in front of her. Notified dr. De La Fuente, new orders for haldol prn.
--- NOTE | 2019-08-24 22:30 | NUR ---
Patient resting no signs of distress. No jerking motions. Haldol effective.
[2019-08-25] VITALS (13 sets, daily range): BP systolic 99–154; BP diastolic 42–58
--- NOTE | 2019-08-25 05:08 | NUR ---
Patient awake and alert, requested to be taken off bipap, place on 4L nc. POX 96%. Patient taking pill ok, but complains of a sore throat. Patient has noticable tremors in arms/hands, unable to hold a glass of water. Patient states its her neuropathy.
--- NOTE | 2019-08-25 05:14 | NUR ---
Offer patient a bath and she stated "not right now".
[2019-08-25 06:07] LABS: HEMOGLOBIN 8.9 g/dl (12.0-16.0); MEAN CELL VOLUME 88.1 fl (81.0-99.0); MEAN CORPUSCULAR HGB 27.1 pg (27.0-31.0); MEAN CORPUSCULAR HGB CONC 30.7 g/dl (33.0-37.0); MEAN PLATELET VOLUME 12.6 fl (9.6-12.3); PLATELET COUNT AUTOMATED 253 10*3/uL (130-400); RED BLOOD COUNT 3.29 10*6/uL (4.10-5.10); RED CELL DISTRI WIDTH 15.9 % (0-14.5); WHITE BLOOD COUNT 15.2 10*3/uL (4.8-10.8)
[2019-08-25 06:12] LABS: ALBUMIN 2.7 gm/dl (3.1-4.5); CREATININE 3.07 mg/dL (0.55-1.02); POTASSIUM 5.1 mmol/L (3.5-5.1); TOTAL PROTEIN 6.9 gm/dL (6.4-8.2)
[2019-08-25 06:45] LABS: ARTERIAL BLOOD GAS PH 7.366 (7.35-7.45)
[2019-08-25 06:47] LABS: ABG BASE EXCESS -11.1 mmol/L (-2.0-2.0)
[2019-08-25 07:28] LABS: BASOPHILS 1 % (0-1); PLATELET SUFFICIENCY NORMAL (NORMAL); TOTAL CELLS COUNTED 100 #CELLS
--- NOTE | 2019-08-25 08:30 | NUR ---
PATIENT ALERT AND ORIENTED X3. PATIENT WILL START TALKING OUT LOUD AND PICKING IN THE AIR. WHEN RN QUESTIONS PATIENT SHE STATES SHE IS TALKING TO HER DOG. RN ASKED PATIENT TO OPEN HER EYES, THEN ASKED IF SHE SEEN THE DOG. SHE STATES "YES" AND THEN PROCEEDS TO WAVE. WILL CONTINUE TO MONITOR.
--- NOTE | 2019-08-25 11:00 | NUR ---
CALLED IN AND UPDATED ON PATIENT CONDITION AND LABS. NEW ORDERS RECEIVED.
--- NOTE | 2019-08-25 12:37 | NUR ---
CALLED . NOTIFIED OF CXR AND LAB RESULTS. NEW ORDERS RECEIVED.
[2019-08-25 15:45] LABS: CREATININE 3.16 mg/dL (0.55-1.02); POTASSIUM 4.8 mmol/L (3.5-5.1)
--- NOTE | 2019-08-25 17:49 | NUR ---
NOTIFIED OF NEW CONSULT ORDER. NEW ORDERS RECEIVED.
--- NOTE | 2019-08-25 19:36 | NUR ---
Patient very restless, grabbing at the air, jerking movements in lower ext. Patient talking to people that are in the room. Haldol given. Will monitor and reassess.
[2019-08-26] VITALS (12 sets, daily range): BP systolic 103–156; BP diastolic 47–91
[2019-08-26 05:37] LABS: CREATININE 3.02 mg/dL (0.55-1.02); POTASSIUM 4.3 mmol/L (3.5-5.1)
--- NOTE | 2019-08-26 06:05 | NUR ---
UPDATED DR. FREDERICK ON NEW LABS. NEW ORDERS TO STOP ALL SALINE FLUIDS.
--- NOTE | 2019-08-26 20:28 | NUR ---
PT. RESTING IN BED, JERKY ARM MOVEMENT NOTED PERIODICALLY. DAUGHTER JOSE IN TO VISIT, STATED SHE WOULD BRING MOTHERS DENTURES AND PHONE IN THE MORNING. RIJ MLC INTACT, DOBUTAMINE DRIP INFUSING VIA DISTAL PORT OF MLC, HEPARIN DRIP INFUSING VIA PROXIMAL PORT OF MLC. RIGHT ARM PICC INTACT. ALL PORTS PATENT. ART LINE LEVELED, ZEROED AND FLUSHED PER POLICY. DEPENDENT EDEMA NOTED OF HANDS AND BLE. ONEIL DRAINING A CLEAR DARK YELLOW URINE. RESP. EASY AND REG ,NO DISTRESS. CHIARA LEON RN
--- NOTE | 2019-08-26 21:29 | NUR ---
PT. DROWSY, BEDSIDE GLUC CHECKED AND FOUND TO BE 119, PT. WARM AND DRY AND DID AROUSE AFTER PROMPTING. CHIARA LEON RN
[2019-08-27] VITALS (9 sets, daily range): BP systolic 106–159; BP diastolic 48–65
--- NOTE | 2019-08-27 08:30 | NUR ---
RESTING IN BED. DENIES ANY COMPLAINTS. WHEN ATTEMPTING TO DO SOMETHING WITH HANDS SHE SHAKES. I/E WHEEZES HEARD IN LUNG SHAW. PULSE OX 99% ON 4L NASAL CANNULA. EDEMA NOTED TO BILATERAL ARMS, HANDS, AND FEET AND LEGS. ONEIL DRAINING CLEAR YELLOW URINE. DOBUTREX INFUSING AT 5 CONY'S AND HEPARIN GTT AT 10CC/HR VIA RIJ MLC. ALERT AND ORIENTED.
--- NOTE | 2019-08-27 09:00 | NUR ---
DR. SÁNCHEZ HERE TO SEE PATIENT.
[2019-08-27 10:48] LABS: BASO # 0.1 10*3/uL (0.0-0.1); BASO % 0.8 % (0.0-1.0); EOS # 0.4 10*3/uL (0.0-0.4); HEMATOCRIT 29.6 % (37.0-47.0); HEMOGLOBIN 8.8 g/dl (12.0-16.0); LYMPH # 0.7 10*3/uL (1.3-4.4); LYMPH % 7.6 % (27.0-41.0); MEAN CELL VOLUME 88.9 fl (81.0-99.0); MEAN CORPUSCULAR HGB 26.4 pg (27.0-31.0); MEAN CORPUSCULAR HGB CONC 29.7 g/dl (33.0-37.0); MEAN PLATELET VOLUME 10.9 fl (9.6-12.3); MONO # 1.4 10*3/uL (0.1-1.0); MONO % 14.5 % (3.0-9.0); NEUT # 6.9 10*3/uL (2.3-7.9); NEUT % 72.7 % (47.0-73.0); PLATELET COUNT AUTOMATED 284 10*3/uL (130-400); RED BLOOD COUNT 3.33 10*6/uL (4.10-5.10); RED CELL DISTRI WIDTH 15.9 % (0-14.5); WHITE BLOOD COUNT 9.5 10*3/uL (4.8-10.8)
--- NOTE | 2019-08-27 11:00 | NUR ---
Optical Advisor in to see patient. No new needs or request at this time. When medically stable, accepted, and precert is received she will be discharged to [facility]. airport planner following.
[2019-08-27 11:06] LABS: ALBUMIN 2.3 gm/dl (3.1-4.5); CREATININE 2.09 mg/dL (0.55-1.02); POTASSIUM 3.7 mmol/L (3.5-5.1); TOTAL PROTEIN 6.7 gm/dL (6.4-8.2)
--- NOTE | 2019-08-27 11:48 | NUR ---
ART LINE REMOVED FROM LEFT RADIAL AND PRESSURE HELD.
--- NOTE | 2019-08-27 14:42 | NUR ---
SHAKER OPERATOR met with patient on this date and discussed Hospice Care. SHAKER OPERATOR provided psycho educational information and implemented reflective listening. Patient in fact wanting to discharge home. Patient agreeable to a Hospice referral if her MD is agreeable. MD was contacted and was agreeable. Hospice order recieved and referral sent on this date. SHAKER OPERATOR will continue to monitor and provide support.
--- NOTE | 2019-08-27 16:00 | NUR ---
TAKEN DOWN TO X-DENY FOR NUCLEAR LUNG SCAN
--- NOTE | 2019-08-27 20:25 | NUR ---
PT. RESTING IN BED, DAUGHTER AT BEDSIDE. PICC IN RIGHT UPPER ARM INTACT, RIJ MLC HAS HEPARIN INFUSING VIA MLC. ABDOMEN SOFT ,NONDISTENDED AND NORMO. DEPENDENT EDEMA OF ARMS/HANDS, LEGS AND FEET. ONEIL CATHETER DRAINING A DARK YELLOW URINE. RESP. EASY AND REG, NO DISTRESS. PULSE OX 100% ON 4L NC HUMIDIFIED. CHIARA LEON RN
[2019-08-28] VITALS: BP 109/46
--- NOTE | 2019-08-28 00:13 | NUR ---
Pt placed on NIV for the evening. Showed some hesitation, but eventually agreed to wear it.
--- NOTE | 2019-08-28 00:26 | NUR ---
PT. WORE BIPAP FOR 26 MINUTES AND STATED SHE COULDN'T TOLERATE IT AND WAS UNABLE TO SLEEP. HAS BEEN VERY ANXIOUS AND RINGING CALL LIGHT EVERY 5-10MINUTES STATING SHE IS UNABLE TO SLEEP. ORDERS RECEIVED. CHIARA LEON RN
--- NOTE | 2019-08-28 00:54 | NUR ---
RESTORIL GIVEN ORDERED FOR INSOMNIA. CHIARA LEON RN
--- NOTE | 2019-08-28 02:21 | NUR ---
PT. WIDE AWAKE, RESTORIL INEFFECTIVE. CHIARA LEON RN
[2019-08-28 04:00] VITALS: BP 114/50
[2019-08-28 08:00] VITALS: BP 108/45
--- NOTE | 2019-08-28 10:00 | NUR ---
Discussed discharge planning with Dr. De La Fuente. Informed family meeting today with [facility]. Patient wants to discharge home. Awaiting family decision. sheet metal duct worker supervisor following.
[2019-08-28 12:00] VITALS: BP 104/45
--- NOTE | 2019-08-28 12:11 | NUR ---
PATIENT C/O LEGS AND BACK HURTING. MEDICATED WITH TYLENOL PER PRN ORDER. WILL CONTINUE TO MONITOR.
[2019-08-28 13:31] LABS: BASO # 0.1 10*3/uL (0.0-0.1); BASO % 1.2 % (0.0-1.0); EOS # 0.5 10*3/uL (0.0-0.4); EOS % 6.5 % (1.0-4.0); HEMATOCRIT 29.3 % (37.0-47.0); HEMOGLOBIN 8.8 g/dl (12.0-16.0); LYMPH % 14.1 % (27.0-41.0); MEAN CELL VOLUME 88.8 fl (81.0-99.0); MEAN CORPUSCULAR HGB 26.7 pg (27.0-31.0); MEAN PLATELET VOLUME 10.9 fl (9.6-12.3); NEUT # 4.4 10*3/uL (2.3-7.9); NEUT % 62.9 % (47.0-73.0); PLATELET COUNT AUTOMATED 299 10*3/uL (130-400); RED CELL DISTRI WIDTH 15.8 % (0-14.5); WHITE BLOOD COUNT 6.9 10*3/uL (4.8-10.8)
[2019-08-28 13:45] LABS: ALBUMIN 2.2 gm/dl (3.1-4.5); CREATININE 1.97 mg/dL (0.55-1.02); POTASSIUM 3.7 mmol/L (3.5-5.1); TOTAL PROTEIN 6.6 gm/dL (6.4-8.2)
--- NOTE | 2019-08-28 14:38 | NUR ---
Discussed discharge planning with Dr. De La Fuente. Plan is for patient to discharge tomorrow with [facility]. housekeeping laundry worker notified.
[2019-08-28 16:00] VITALS: BP 111/55
[2019-08-28 20:00] VITALS: BP 114/46
[2019-08-29] VITALS: BP 125/88
--- NOTE | 2019-08-29 00:48 | NUR ---
PT TAKEN OFF BIPAP. O2 APPLIED VIA 2L NC. PO APRESOLINE ADMINISTERED PER ORDER. BP 125/58. PT TOOK PILL WITHOUT ISSUE, BUT BECAME NAUSEOUS SHORTLY AFTER AND VOMITED SMALL AMOUNT OF EMESIS. IV ZOFRAN ADMINISTERED AT THIS TIME. HOB ELEVATED AND PATIENT TURNED ON L SIDE TO PREVENT ASPIRATION. BIPAP WILL BE REAPPLIED ONCE NAUSEA SUBSIDES AND PT AGREES. PICC LINE FLUSHED WITH HEPARIN FLUSH PER ORDER. RED PORT WILL NOT FLUSH, BUT PURPLE PORT FLUSHES WITHOUT ISSUE. SWAB CAPS APPLIED TO ALL CENTRAL LINE PORTS (PICC/RIJ). WILL MONITOR.
[2019-08-29 01:20] VITALS: BP 129/52
--- NOTE | 2019-08-29 01:37 | NUR ---
PT ASLEEP IN BED ON L SIDE AT THIS TIME. NO S/S OF DISTRESS NOTED. WILL MONITOR. CALL LIGHT IN REACH. BED ALARM INTACT. HOB ELEVATED 30 DEGREES.
--- NOTE | 2019-08-29 02:14 | NUR ---
VERY SMALL AMOUNT OF BM NOTED IN BRIEF. PATIENT CLEANED UP AND BRIEF CHANGED. PATIENT PULLED UP IN BED AND REPOSITIONED ON R SIDE. NAUSEA HAS SUBSIDED. BIPAP APPLIED AT ORDERED SETTINGS. CONTINUOUS POX ALSO APPLIED. WILL MONITOR. CALL LIGHT LEFT IN REACH.
--- NOTE | 2019-08-29 03:42 | NUR ---
PATIENT PULLED UP IN BED, REPOSITIONED ON L SIDE FOR COMFORT. HOB ELEVATED. O2 IN USE VIA 2L NC. WILL MONITOR. CALL LIGHT IN REACH, BED ALARM INTACT.
[2019-08-29 06:00] VITALS: BP 120/48
--- NOTE | 2019-08-29 06:23 | NUR ---
PT TOOK MORNING MEDICATIONS WITHOUT ISSUE. PT PLACED ON BIPAP. RELUCTANT TO WEAR, BUT AGREES AT THIS TIME. PT REFUSING DAILY WEIGHT AT CURRENT TIME. STATES IF WE HAVE TO TAKE ALL PILLOWS OUT AND WEIGH HER, SHE'S GOING TO THROW BIPAP ACROSS THE ROOM. WILL PASS ON TO AM SHIFT TO GET DAILY WEIGHT.
[2019-08-29 06:30] LABS: BASO # 0.1 10*3/uL (0.0-0.1); EOS # 0.7 10*3/uL (0.0-0.4); EOS % 9.5 % (1.0-4.0); HEMATOCRIT 30.4 % (37.0-47.0); HEMOGLOBIN 9.1 g/dl (12.0-16.0); LYMPH # 1.1 10*3/uL (1.3-4.4); LYMPH % 16.2 % (27.0-41.0); MEAN CELL VOLUME 88.1 fl (81.0-99.0); MEAN CORPUSCULAR HGB 26.4 pg (27.0-31.0); MEAN CORPUSCULAR HGB CONC 29.9 g/dl (33.0-37.0); MEAN PLATELET VOLUME 11.3 fl (9.6-12.3); MONO # 1.3 10*3/uL (0.1-1.0); MONO % 18.9 % (3.0-9.0); NEUT # 3.8 10*3/uL (2.3-7.9); PLATELET COUNT AUTOMATED 308 10*3/uL (130-400); RED BLOOD COUNT 3.45 10*6/uL (4.10-5.10); RED CELL DISTRI WIDTH 15.8 % (0-14.5)
[2019-08-29 06:56] LABS: POTASSIUM 3.9 mmol/L (3.5-5.1)
[2019-08-29 07:04] LABS: ALBUMIN 2.4 gm/dl (3.1-4.5); CREATININE 1.83 mg/dL (0.55-1.02); TOTAL PROTEIN 6.5 gm/dL (6.4-8.2)
--- NOTE | 2019-08-29 07:10 | NUR ---
PT TAKEN OFF BIPAP AT THIS TIME. O2 APPLIED AT 2L NC. PATIENT ASSISTED TO ORDER BREAKFAST. WILL MONITOR.
[2019-08-29 08:18] VITALS: BP 134/42
[2019-08-29] MEDS ORDERED: BUMETANIDE1 MG PO (10:34)
--- NOTE | 2019-08-29 11:49 | NUR ---
PICC LINE REMOVED PER ORDERS. TIP INTACT MEASURED 40CM. DSD APPLIED. PT TOLERATED WELL.
[2019-08-29 12:00] VITALS: BP 113/52
--- NOTE | 2019-08-29 13:10 | NUR ---
Patient is discharged home with [facility] via [facility] at 3PM. Nursing/stewarding supervisor/hospice and family all notified.
--- NOTE | 2019-08-29 14:15 | NUR ---
MLC REMOVED PER ORDERS. TIP INTACT. DSD APPLIED. PT TOLERATED WELL.
--- NOTE | 2019-08-29 15:14 | NUR ---
Discharge instructions reviewed with patient/family. Patient receptive and verbalizes understanding. Follow-up care arranged. Written instructions given to patient/family. KATJA RIVAS
== END 2019-08-29 15:14 | disposition hospice, home (50) | DRG 208 ==
LOC: ED 02:24 → ICCU 04:48 → 4E 04:48 → EDHOLD 04:48 → 4E 05:12 → ICCU 08-16 09:51 → 4E 08-21 13:28 → ICCU 08-23 08:23 → 4E 08-28 15:22
PROVIDERS: Emergency Medicine; Internal Medicine; Internal Medicine Cardiovascular Disease; Internal Medicine Critical Care Medicine; Internal Medicine Nephrology; ADMIT Internal Medicine
PROC: 0BH18EZ Insertion of Endotracheal Airway into Trachea, Via Natural or Artificial Opening Endoscopic (ICD-10-PCS; principal; 2019-08-23)
PROC: B548ZZA Ultrasonography of Superior Vena Cava, Guidance (ICD-10-PCS; principal; 2019-08-23)
PROC: 4A133B1 Monitoring of Arterial Pressure, Peripheral, Percutaneous Approach (ICD-10-PCS; principal; 2019-08-23)
PROC: 03HY32Z Insertion of Monitoring Device into Upper Artery, Percutaneous Approach (ICD-10-PCS; principal; 2019-08-23)
PROC: 5A1935Z Respiratory Ventilation, Less than 24 Consecutive Hours (ICD-10-PCS; principal; 2019-08-23)
PROC: 0BH17EZ Insertion of Endotracheal Airway into Trachea, Via Natural or Artificial Opening (ICD-10-PCS; principal; 2019-08-23)
PROC: 4A133J1 Monitoring of Arterial Pulse, Peripheral, Percutaneous Approach (ICD-10-PCS; principal; 2019-08-23)
PROC: 02HV33Z Insertion of Infusion Device into Superior Vena Cava, Percutaneous Approach (ICD-10-PCS; principal; 2019-08-23)
PROC: 5A09357 Assistance with Respiratory Ventilation, Less than 24 Consecutive Hours, Continuous Positive Airway Pressure (ICD-10-PCS; 2019-08-24)
PROC: 5A09357 Assistance with Respiratory Ventilation, Less than 24 Consecutive Hours, Continuous Positive Airway Pressure (ICD-10-PCS; 2019-08-25)
PROC: 5A09357 Assistance with Respiratory Ventilation, Less than 24 Consecutive Hours, Continuous Positive Airway Pressure (ICD-10-PCS; 2019-08-27)
DX: J96.21 Acute and chronic respiratory failure with hypoxia (principal); N17.0 Acute kidney failure with tubular necrosis; I50.23 Acute on chronic systolic (congestive) heart failure; E43 Unspecified severe protein-calorie malnutrition; I13.0 Hypertensive heart and chronic kidney disease with heart failure and stage 1 through stage 4 chronic kidney disease, or unspecified chronic kidney disease; J44.0 Chronic obstructive pulmonary disease with (acute) lower respiratory infection; J44.1 Chronic obstructive pulmonary disease with (acute) exacerbation; E44.1 Mild protein-calorie malnutrition; E87.1 Hypo-osmolality and hyponatremia; J45.901 Unspecified asthma with (acute) exacerbation; N18.4 Chronic kidney disease, stage 4 (severe); E87.3 Alkalosis; N39.0 Urinary tract infection, site not specified; I38 Endocarditis, valve unspecified; I42.9 Cardiomyopathy, unspecified; J96.22 Acute and chronic respiratory failure with hypercapnia; E11.22 Type 2 diabetes mellitus with diabetic chronic kidney disease; R62.7 Adult failure to thrive; I35.1 Nonrheumatic aortic (valve) insufficiency; I25.10 Atherosclerotic heart disease of native coronary artery without angina pectoris; E78.2 Mixed hyperlipidemia; F51.01 Primary insomnia; E87.5 Hyperkalemia; F17.210 Nicotine dependence, cigarettes, uncomplicated; K57.30 Diverticulosis of large intestine without perforation or abscess without bleeding; E11.42 Type 2 diabetes mellitus with diabetic polyneuropathy; D64.9 Anemia, unspecified; B95.62 Methicillin resistant Staphylococcus aureus infection as the cause of diseases classified elsewhere; E87.6 Hypokalemia; K74.60 Unspecified cirrhosis of liver; J20.9 Acute bronchitis, unspecified; E11.65 Type 2 diabetes mellitus with hyperglycemia; T38.0X5A Adverse effect of glucocorticoids and synthetic analogues, initial encounter; E77.8 Other disorders of glycoprotein metabolism; I95.9 Hypotension, unspecified; K59.09 Other constipation; E83.42 Hypomagnesemia; N14.1 Nephropathy induced by other drugs, medicaments and biological substances; T50.8X5A Adverse effect of diagnostic agents, initial encounter; Z91.048 Other nonmedicinal substance allergy status; Y92.89 Other specified places as the place of occurrence of the external cause; Z71.6 Tobacco abuse counseling; Z68.37 Body mass index [BMI] 37.0-37.9, adult; Z88.0 Allergy status to penicillin; Z79.899 Other long term (current) drug therapy; Z79.82 Long term (current) use of aspirin; Z82.3 Family history of stroke; Z83.3 Family history of diabetes mellitus; Z82.49 Family history of ischemic heart disease and other diseases of the circulatory system

== ENCOUNTER 2019-08-29 23:13 | Inpatient (IN) | payer OTHER ==
[~2019-08-29] VITALS: Ht 162.6 cm; Wt 83.0 kg
[~2019-08-29 23:13] MED LIST changes: +BUMETANIDE1 MG PO; +HYDRALAZINE10 MG PO; +ISOSORBIDE DINI10 M1 PO
[2019-08-29 23:30] VITALS: BP 140/51
--- NOTE | 2019-08-29 23:30 | NUR ---
DR MARTE CALLED FOR ADMISSION ORDERS, ORDERS RECIEVED.
--- NOTE | 2019-08-29 23:50 | NUR ---
PT IS LAYING IN BED WITH FAMILY AT BEDSIDE. FAMILY STATES THAT PATIENTS CONDITION DECLINED SUDDENLY WHEN THEY WERE UNABLE TO MAINTAIN PULSE OX ABOVE 90% AND PATIENT BEGAN C/O SEVERE PAIN THROUGHOUT BODY. PT IS CRYING STATING THAT SHE IS "IN PAIN AND TIRED". WILL MEDICATE PT PER ORDERS.
--- NOTE | 2019-08-30 00:10 | NUR ---
PT MEDICATED WITH PRN DILAUDID AND ATIVAN FOR C/O PAIN RATED A 10/10 AND SEVERE ANXIETY. WILL MONITOR FOR EFFECTIVENESS.
[2019-08-30 00:45] VITALS: BP 128/51
--- NOTE | 2019-08-30 01:47 | NUR ---
A 74, admitted to , under the services of Dr. ESTUARDO PARISH,ANAND Solorio with a diagnosis of ADULT FAILURE TO THRIVE WITH PERSISTANT RESPIRATORY FAILURE. Chief complaint is PAIN, SOB. Patient arrived via bed from [place]. Monitor applied. Initial assessment completed. Vital signs taken and recorded. DR. ESTUARDO PARISH,ANAND Solorio notified of admission to the unit. Orders received. See assessment for past medical history, medications and allergies. Patient and/or family oriented to unit. [address] visitation policy reviewed. Clothing/patient valuable form completed. RAVEN TIDWELL
--- NOTE | 2019-08-30 04:25 | NUR ---
PT APPEARS TO BE RESTING COMFORTABLY AT THIS TIME. RESPS ARE 14/MIN WITH A PULSE OX OF 99% ON 5L NC. WILL CONTINUE TO MONITOR.
[2019-08-30 05:26] VITALS: BP 145/54
[2019-08-30 08:00] VITALS: BP 133/42
--- NOTE | 2019-08-30 09:00 | NUR ---
Horticultural Nursery Assistant in to see patient. The patient attendants are getting ready to clean the patient up. She is GIP hospice by [facility].
[2019-08-30 12:00] VITALS: BP 133/65
[2019-08-30 16:00] VITALS: BP 149/59
[2019-08-30 20:00] VITALS: BP 126/53
[2019-08-31] VITALS: BP 143/46
--- NOTE | 2019-08-31 03:19 | NUR ---
PT'S RESPS HAVE CEASED, NO PULSE/HEART SOUNDS. VERIFIED WITH VICENTE MILLER
--- NOTE | 2019-08-31 03:25 | NUR ---
DR MARTE MADE AWARE THAT PATIENT HAS AT 0319.
--- NOTE | 2019-08-31 03:39 | NUR ---
[facility] CALLED AND MADE AWARE OF PT .
--- NOTE | 2019-08-31 05:23 | NUR ---
[facility] PAGED. SECURITY MADE AWARE
--- NOTE | 2019-08-31 05:29 | NUR ---
SURENDRA FROM [facility] CALLED BACK AND STATED THAT HE NEEDS TO CALL SOMEONE AND THEY COULD BE OUT BETWEEN HALF AND HOUR AND 45 MINUTES
--- NOTE | 2019-08-31 06:36 | NUR ---
[facility] AT [facility]
--- NOTE | 2019-08-31 07:32 | NUR ---
CALL MADE TO [facility], AWAITING RETURN PHONE CALL.
== END 2019-08-31 03:19 | disposition expired | DRG 291 ==
LOC: 5E 23:13
PROVIDERS: ADMIT Internal Medicine
DX: I50.23 Acute on chronic systolic (congestive) heart failure (principal); J96.00 Acute respiratory failure, unspecified whether with hypoxia or hypercapnia; E43 Unspecified severe protein-calorie malnutrition; N17.0 Acute kidney failure with tubular necrosis; Z51.5 Encounter for palliative care; N18.3 Chronic kidney disease, stage 3 (moderate); K74.60 Unspecified cirrhosis of liver; I25.10 Atherosclerotic heart disease of native coronary artery without angina pectoris; E78.2 Mixed hyperlipidemia; F51.01 Primary insomnia; R52 Pain, unspecified; I35.2 Nonrheumatic aortic (valve) stenosis with insufficiency; R62.7 Adult failure to thrive; Z88.0 Allergy status to penicillin; Z68.31 Body mass index [BMI] 31.0-31.9, adult